=== PATIENT | female | born 2000 | race Caucasian/White ===

== ENCOUNTER 2020-01-20 16:18 | Emergency (ER) | payer SELFPAY ==
--- NOTE | 2020-01-20 16:21 | XRR_ITS ---
PROCEDURE INFORMATION: Exam: XR Left Knee Exam date and time: 01/20/2020 4:51 PM Age: 20 years old Clinical indication: Pain; Knee; Left TECHNIQUE: Imaging protocol: XR Left knee. Views: 3 views. COMPARISON: No relevant prior studies available. FINDINGS: Bones/joints: Normal. Soft tissues: Normal. XR/XR knee LT 3V* [id number] IMPRESSION: No acute findings.
--- NOTE | 2020-01-20 16:21 | XRR_ITS ---
PROCEDURE INFORMATION: Exam: XR Right Knee Exam date and time: 01/20/2020 4:53 PM Age: 20 years old Clinical indication: Pain; Knee; Right TECHNIQUE: Imaging protocol: XR Right knee. Views: 3 views. COMPARISON: No relevant prior studies available. FINDINGS: Bones/joints: Normal. Soft tissues: Normal. XR/XR knee RT 3V* [id number] IMPRESSION: No acute findings.
[2020-01-20 16:25] VITALS: BP 114/71; PULSE 82; RESP 14; TEMP 36.7; O2SAT 98; BMI 19.8
--- NOTE | 2020-01-20 16:43 | ED_ITS ---
HPI - Extremity Problem General: Chief complaint: Extremity Problem,Nontraumatic Stated complaint: knee pain Time Seen by Provider: 01/20/20 16:34 Source: patient Mode of arrival: ambulatory Limitations: no limitations History of Present Illness: HPI Narrative: Marija is a very nice 20-year-old female who comes in complaining of bilateral knee pain. She states the pains been going on for about 3 months and becoming progressively worse. Her left knee hurts more than her right. She states when she bends her walks on her knees it hurts more than when she is at rest. She has no pain with just standing. She denies any specific injury. Patient states that walking in bending does make the pain worse and rest makes it better. She denies any fevers or chills. She denies any swelling to the knees. Patient has not received any work-up for this up to this point. She is not tried any for this at home either. Associated symptoms: Deny chest pain, fever(s) or rash Review of Systems Const: Denies: fever(s), chills, body aches, fatigue, malaise or diaphoresis Eyes: Denies: change in vision, blurry vision, blind spots, photophobia, eye discharge or eye redness ENMT: Denies: throat pain, odynophagia, hoarseness, swelling of lips/tongue, oral sores, ear or mastoid pain, ear discharge, change in hearing or nasal discharge Card: Denies: chest pain, palpitations, irregular heart rhythm, edema, lightheadedness, syncope, pre-syncope, dyspnea on exertion or orthopnea Resp: Denies: dyspnea, productive cough, non-productive cough, wheezing, hemoptysis or chest congestion GI: Denies: abdominal pain, nausea, vomiting, hematemesis, coffee ground emesis, heartburn, diarrhea, constipation, GI cramping, hematochezia or melena : Denies: flank pain, dysuria, urinary frequency, urinary urgency or hematuria Musc: Reports: joint pain; Denies: neck pain, back pain, extremity pain, extremity swelling, joint swelling, joint redness, joint warmth or joint stiffness Skin/Breast: Denies: rash, pruritus, erythema, skin tenderness or jaundice Neuro: Denies: headache(s), numbness in extremities, weakness in extremities, sensory changes, lack of coordination, difficulty walking, dizziness, vertigo, confusion, Slurred speech present or seizure-like activity Chirag/Lymph: Denies: easy bruising, easy bleeding, petechiae, purpura or enlarged lymph nodes All/Imm: Denies: urticaria, throat swelling, tongue swelling, facial swelling or acute wheezing PFSH ED PFSH: Social History (Updated 01/20/20 @ 15:44 by Ayleen Warren LPN) Smoking and tobacco status: never smoked Alcohol intake: current Physical Exam Const: COMMON NORMALS: no acute distress, patient oriented x3, no limitations, healthy appearing and well nourished GENERAL APPEARANCE: cooperative, well kempt and well developed HENMT: COMMON NORMALS: normocephalic, atraumatic, external ears normal, EAC's normal and Normal external nose present HEAD & SCALP: normal to inspection, normocephalic and atraumatic FACE & SINUS: normal facial exam and face symmetric NOSE: Normal external nose present and Normal nares present EXTERNAL EAR: Yes external ears normal EXTERNAL AUDITORY CANAL: EAC's normal MOUTH: Normal oral and palatal mucosa present, lip normal and tongue normal Eye: COMMON NORMALS: Equal, round and reactive pupils present and conjunctivae normal GENERAL EYE: appearance normal, both eyes and all related structures ALIGNMENT: Yes alignment normal PERIORBITAL: periorbital findings normal EYELID: eyelids normal CONJUNCTIVA: Yes conjunctivae normal SCLERA: sclerae normal PUPIL: Yes Equal, round and reactive pupils present Neck/C-Spine: COMMON NORMALS: full ROM, no lymphadenopathy, supple, no meningeal signs and no JVD GENERAL: Yes normal visual inspection and Yes trachea midline Chest: COMMONS NORMALS: normal inspection of the chest and normal palpation of entire chest wall Resp: COMMON NORMALS: normal respiratory effort, No retractions and No use of accessory muscles EFFORT & INSPECTION: Yes able to speak in complete sentences and Yes symmetric chest movement AUSCULTATION: no crackles, no rales, no rhonchi and no wheezes Cardio: COMMON NORMALS: no JVD, regular rate, regular rhythm, S1 normal heart sound present and S2 normal heart sound present RATE: regular rate RHYTHM: regular rhythm HEART SOUNDS: S1 normal heart sound present, S2 normal heart sound present, no click, no gallops, no murmurs, no rubs and abnormal split S2 GI: COMMON NORMALS: Soft to palpation and No hepatosplenomegaly present PALPATION: Yes Soft to palpation, No Tenderness to palpation present (GI), No Guarding due to palpation present (GI), No Rigid due to palpation, Yes No hepatosplenomegaly present, No Hernia present, No Palpable mass present and No Pulsatile mass present : COMMON NORMALS: Yes no CVA tenderness BLADDER/KIDNEY EXAM: Yes no CVA tenderness EXTERNAL FEMALE EXAM: No Hernia present Back/Pelvis: COMMON NORMALS: no CVA tenderness, thoracic and lumbar spine normal to inspection, no thoracic nor lumbar tenderness and thoraco-lumbar ROM normal Extremity: COMMON NORMALS: normal to inspection, capillary refill normal, no joint enlargement, no clubbing, cyanosis or edema and no calf tenderness NARRATIVE EXTREMITY EXAM: Bilateral knees without swelling, ecchymosis or tenderness to palpation. No tenderness to palpation. No warmth to the touch. Neuro: COMMON NORMALS: patient oriented x3, CN's II-XII intact bilaterally, moves all extremities, no focal motor deficits and no sensory deficits noted MENINGEAL SIGNS: Yes no meningeal signs SPEECH: speech normal Psych: COMMON NORMALS: mental status grossly normal, Normal thought process present, cooperative, normal affect, speech normal and activity/motor behavior normal APPEARANCE: Yes well kempt SPEECH: Yes normal speech THOUGHT PROCESS: Normal thought process present Skin: COMMON NORMALS: no rashes or lesions noted, turgor normal, no jaundice, no petechiae and no mottling GENERAL SKIN EXAM: no rashes or lesions noted and turgor normal Course Vital Signs: Vital signs: Vital Signs Temperature 98.0 F 01/20/20 16:25 Pulse Rate 70 01/20/20 17:02 Respiratory Rate 14 01/20/20 17:02 Blood Pressure 110/76 01/20/20 17:02 Pulse Oximetry 99 01/20/20 17:02 MDM - Extremity (Nontraumatic) MDM Narrative: Medical decision making narrative: Marija is a nice 20-year-old female who comes in complaining of chronic knee pain. Her exam and x-rays are unremarkable. I see no sign of infected joint, rheumatoid arthritis, acute joint instability or otherwise. The patient would like to go home so we will wrap her to an Ger wrap and write her off work today. She agrees to follow-up with Dr. Samira as this is become a persistent problem. Imaging Data^: Bilateral Knee X-Rays: Attestation: I personally reviewed and interpreted this imaging study as follows: My impression: No acute fractures or dislocations. Discharge Plan Discharge Patient Disposition: Home Clinical Impression: Acute knee pain Condition: Stable Prescriptions: No Action No Known Home Medications RF: 0 Discharge Orders: Discharge Order (Routine); Ordered 01/20/20 Ordered By: Marsha De La Rosa Referrals: Meron Ruiz MD [Physician] - 1-3 days Discharge Diet: Advance as tolerated Discharge Activity: Increase activity as tolerated Patient Instructions: Knee Pain (ED) Activity Restrictions/Additional Instructions: Please return to the ER immediately for any of the signs or symptoms listed on your discharge instruction sheets, worsening/changing of your symptoms, you are not getting better as quickly as expected, or for ANY other cause or concerns. Stand Alone Forms: Work/School Release Discharge Date/Time: 01/20/20 17:03 Coding Level of Care Code ED Warehouse Logistics Coordinator for Chg Fwd Exam Comprehensive
--- NOTE | 2020-01-20 17:00 | PC.NURSE ---
Ger wrap applied to left knee
[2020-01-20 17:02] VITALS: BP 110/76; PULSE 70; RESP 14; O2SAT 99
== END 2020-01-20 17:03 | disposition home or self-care (01) ==
PROVIDERS: Emergency Provider Emergency Medicine
DX: M25.561 Pain in right knee (principal); M25.562 Pain in left knee
CPT/HCPCS: 12345; 73562; 99281; 99283

== ENCOUNTER → 2020-03-20 17:31 | Outpatient (BNVA) | payer SELFPAY | PROVIDERS: Visit Provider Nurse Practitioner | DX: J02.9 Acute pharyngitis, unspecified (principal); J02.0 Streptococcal pharyngitis | CPT/HCPCS: 87071; 87880 ==

== ENCOUNTER 2021-11-24 00:09 | Emergency (ER) | payer SELFPAY ==
[2021-11-24 00:33] VITALS: BP 115/80; PULSE 88; RESP 18; TEMP 36.9; O2SAT 98; BMI 23.9
--- NOTE | 2021-11-24 02:09 | ED_ITS ---
HPI - Ear Problem General: Chief complaint: Ear Stated complaint: Sinus infection/left ear pain Time Seen by Provider: 11/24/21 00:33 History of Present Illness: Patient is a 21-year-old female comes to the ED with left ear pain. Patient had a positive test yesterday and is currently in the process of setting up an appointment with her OB for first trimester appointment. Left ear pain started today. She rates the pain currently a 5 out of 10. She was having sinus congestion and drainage yesterday, but since she found out she was she did not take any [id number] decongestants. Today she woke up and started having the left ear pain. Denies any fevers, ear discharge or drainage, cough, shortness of breath, chest pain, abdominal pain, bladder or bowel symptoms. Patient does endorse some mild morning nausea. Denies any vaginal discharge or vaginal bleeding. Associated symptoms: Reports ear or mastoid pain (left ear pain); Denies fever(s), headache(s) or neck pain Review of Systems Const: Denies: fever(s), chills or fatigue Eyes: Denies: change in vision or eye discomfort ENMT: Reports: ear or mastoid pain (left ear pain); Denies: throat pain, odynophagia, ear discharge, change in hearing, nasal discharge or nasal congestion Card: Denies: chest pain, palpitations, edema, swelling of feet/ankles, dyspnea on exertion or orthopnea Resp: Denies: dyspnea, productive cough or non-productive cough GI: Denies: abdominal pain, nausea, vomiting, diarrhea, constipation or hematochezia : Reports: vaginal bleeding; Denies: flank pain, dysuria or hematuria Musc: Denies: neck pain, back pain or extremity swelling Skin/Breast: Denies: rash or new lesions Neuro: Denies: headache(s), numbness in extremities or weakness in extremities PFSH ED PFSH: Medical History No pertinent family history Surgical History No pertinent past surgical history Social History Smoking and tobacco status: current every day smoker Alcohol intake: never Physical Exam Const: COMMON NORMALS: no acute distress, patient oriented x3 and alert GENERAL APPEARANCE: cooperative and comfortable HENMT: COMMON NORMALS: normocephalic, external ears normal and EAC's normal HEAD & SCALP: normocephalic FACE & SINUS: sinuses nontender EXTERNAL EAR: Yes external ears normal EXTERNAL AUDITORY CANAL: EAC's normal TYMPANIC MEMBRANE: TM abnormal TM laterality: left Details: bulging, erythematous and fluid behind TM MOUTH: Normal oral and palatal mucosa present THROAT: posterior oropharynx normal and uvula midline Eye: COMMON NORMALS: Equal, round and reactive pupils present and conjunctivae normal CONJUNCTIVA: Yes conjunctivae normal PUPIL: Yes Equal, round and reactive pupils present Neck/C-Spine: COMMON NORMALS: supple GENERAL: Yes normal visual inspection Resp: COMMON NORMALS: normal respiratory effort, No retractions, No use of accessory muscles and clear to auscultation bilaterally AUSCULTATION: clear to auscultation bilaterally Cardio: COMMON NORMALS: regular rate, regular rhythm, S1 normal heart sound present, S2 normal heart sound present, No gallops present (Cardio), No clicks present (Cardio), No murmurs present (Cardio) and Peripheral pulses 2+ throughout RATE: regular rate RHYTHM: regular rhythm HEART SOUNDS: S1 normal heart sound present and S2 normal heart sound present PERIPHERAL PULSES: Peripheral pulses 2+ throughout GI: COMMON NORMALS: Normal to inspection, nondistended, normoactive bowel sounds present, Soft to palpation, non-tender and no masses PALPATION: Yes Soft to palpation : COMMON NORMALS: Yes no CVA tenderness BLADDER/KIDNEY EXAM: Yes no CVA tenderness Back/Pelvis: COMMON NORMALS: no CVA tenderness Extremity: COMMON NORMALS: normal to inspection Neuro: COMMON NORMALS: patient oriented x3 and moves all extremities SENSORIUM/ORIENTATION: Yes alert Skin: GENERAL SKIN EXAM: dry skin Course Vital Signs: Vital signs: Vital Signs Temperature 98.5 F 11/24/21 00:33 Pulse Rate 88 11/24/21 00:33 Respiratory Rate 18 11/24/21 00:33 Blood Pressure 115/80 11/24/21 00:33 Pulse Oximetry 98 11/24/21 00:33 MDM - Ear Medical Decision Making Patient is a 21-year-old female comes to the ED with left ear pain. Vitals are stable and patient appears nontoxic in no acute distress or pain. Exam of patient shows acute otitis media in left ear. Patient discharged home with prescription for amoxicillin and told to follow-up with PCP in the next week for reevaluation. Return to ED precautions given. Patient understood and agreed with plan. Discharge Plan Discharge Patient Disposition: Home Clinical Impression: Otitis media Qualifiers: Otitis media type: serous Chronicity: acute Laterality: left Recurrence: non- recurrent Qualified Code(s): H65.02 - Acute serous otitis media, left ear Condition: Stable Prescriptions: New amoxicillin 500 mg capsule 500 mg PO BID 10 Days Qty: 20 0RF Discharge Orders: Discharge ED (Routine); Ordered 11/24/21 Ordered By: Terrence Tillman Discharge Diet: Regular Discharge Activity: Resume usual activity Patient Instructions: Otitis Media - Adult Activity Restrictions/Additional Instructions: Follow-up with medical provider as directed in the next 7 to 10 days reevaluation.Take medications as prescribed. Return to the ER or your medical provider if condition worsens. Please read and understand discharge instructions. Thank you for choosing [facility] for your healthcare needs today. Please realize this is an emergency room and that we are providing you with a medical screening exam and this may not be complete and all inclusive of all the testing and or work up that you may need to determine your ailment or severity of your illness. It is very important that you follow up as instructed or that you return to the Emergency Department should you have concerns or if your condition changes or worsens in any way. Coding Level of Care Code ED Network Support Engineer for Josh Phillip Exam Comprehensive
[2021-11-24] MEDS: amoxicillin 500 mg Capsule PO (02:20)
== END 2021-11-24 02:22 | disposition home or self-care (01) ==
PROVIDERS: Emergency Provider Physician Assistant
DX: H65.02 Acute serous otitis media, left ear (principal)
CPT/HCPCS: 99283

== ENCOUNTER → 2022-02-18 10:33 | Outpatient (BNVA) | payer MEDICAID, SELFPAY | PROVIDERS: Visit Provider Emergency Medicine | DX: Z20.822 Contact with and (suspected) exposure to COVID-19 (principal) | CPT/HCPCS: 87426 ==

== ENCOUNTER 2022-03-19 22:17 | Emergency (ER) | payer MEDICAID, SELFPAY ==
--- NOTE | 2022-03-19 22:18 | XRR_ITS ---
PROCEDURE INFORMATION: Exam: XR Right Ankle Exam date and time: 03/19/2022 10:48 PM Age: 22 years old Clinical indication: Injury or trauma; Fall; Blunt trauma; Ankle; Right TECHNIQUE: Imaging protocol: Radiologic exam of the Right ankle. Views: 3 or more views. COMPARISON: No relevant prior studies available. FINDINGS: Bones/joints: Osseous structures are intact. Negative for fracture. Joint spaces are preserved. Soft tissues: Normal. XR/XR ankle RT min 3V* [id number] IMPRESSION: No acute findings.
[2022-03-19 22:23] VITALS: BP 104/72; PULSE 101; RESP 16; TEMP 36.7; O2SAT 95; BMI 23.9
--- NOTE | 2022-03-19 22:31 | ED_ITS ---
HPI - Extremity Injury (Lower) General: Chief Complaint: Extremity Injury, Lower Stated Complaint: Rt Ankle Injury Time Seen by Provider: 03/19/22 22:31 History of Present Illness: 22-year-old female comes in today with complaints of injury to the right ankle. Patient reports she went to stand up this evening and lost her footing when she went to put weight on her right ankle causing it to turn. Patient has had increased pain and discomfort to the ankle since then. No obvious deformity is noted. Minimal swelling is noted. Review of Systems Const: Denies: fever(s) Card: Denies: chest pain Resp: Denies: dyspnea Musc: Reports: joint pain (Right lateral ankle) PFS ED PFSH: Medical History No pertinent family history Surgical History No pertinent past surgical history Social History Smoking and tobacco status: current every day smoker Alcohol intake: never Physical Exam Const: COMMON NORMALS: alert HENMT: COMMON NORMALS: normocephalic HEAD & SCALP: normocephalic Neck/C-Spine: COMMON NORMALS: full ROM Resp: COMMON NORMALS: normal respiratory effort Cardio: COMMON NORMALS: regular rate RATE: regular rate Extremity: RIGHT LOWER EXTREMITY: Yes foot & digits (Lateral joint line tenderness, no deformity, minimal swelling) Right ankle: Yes inspection, Yes pa lpation and Yes ROM Neuro: SENSORIUM/ORIENTATION: Yes alert Skin: COMMON NORMALS: turgor normal GENERAL SKIN EXAM: turgor normal Course Vital Signs: Vital signs: Vital Signs Temperature 98.1 F 03/19/22 22:23 Pulse Rate 101 H 03/19/22 22:23 Respiratory Rate 16 03/19/22 22:23 Blood Pressure 104/72 03/19/22 22:23 Pulse Oximetry 95 03/19/22 22:23 Oxygen Delivery Me thod 03/19/22 22:23 MDM - Extremity Injury (Lower) Medical Decision Making Patient comes in for evaluation of right ankle pain after injury this evening. On exam patient has some lateral tenderness and mild swelling to the ankle. Differential diagnosis includes sprain, fracture, contusion. X-ray noted no fracture or dislocation. Reviewed exam with patient with recommendations and treatment. Patient reported understanding and agreed to plan. Lab Data Radiology Impressions Ankle X-Ray 03/19/22 22:18 IMPRESSION: No acute findings. Discharge Plan Discharge Patient Disposition: Home Clinical Impression: Ankle sprain and strain Condition: Stable Prescriptions: No Action No Known Home Medications Discharge Orders: Discharge ED (Routine); Ordered 03/19/22 Ordered By: Anselmo Real Discharge Diet: Usual diet Discharge Activity: Increase activity as tolerated Patient Instructions: Ankle Sprain (ED) Activity Restrictions/Additional Instructions: Activity as tolerated. Use crutches as needed to help with ambulation. Use acetaminophen for pain. Ice packs for further pain relief. Follow-up with primary care for further instruction. Return to ER for new concerns. Coding Level of Care Code ED Parliamentary Librarian for Josh Phillip Exam Detailed
== END 2022-03-19 23:45 | disposition home or self-care (01) ==
PROVIDERS: Emergency Provider Nurse Practitioner Family
DX: S93.401A Sprain of unspecified ligament of right ankle, initial encounter (principal); S96.911A Strain of unspecified muscle and tendon at ankle and foot level, right foot, initial encounter; F17.210 Nicotine dependence, cigarettes, uncomplicated; W18.40XA Slipping, tripping and stumbling without falling, unspecified, initial encounter
CPT/HCPCS: 73610; 99283; E0114

== ENCOUNTER 2022-06-22 17:48 | Outpatient (CLI) | payer MEDICAID, SELFPAY ==
[2022-06-22 17:48] VITALS: BMI 25.7
[2022-06-22 18:13] VITALS: BP 105/63; PULSE 86; RESP 16; TEMP 36; TEMP 36.6
[2022-06-22 18:36] LABS: Nitrazine Paper, PH Negative
== END 2022-06-22 18:50 | disposition home or self-care (01) ==
LOC: OPOB 17:57 → OBGYN 18:00
PROVIDERS: Visit Provider Family Medicine
DX: O26.899 Other specified pregnancy related conditions, unspecified trimester (principal); Z3A.00 Weeks of gestation of pregnancy not specified; N89.8 Other specified noninflammatory disorders of vagina
CPT/HCPCS: 59025; 83986; 99211

== ENCOUNTER 2022-07-23 04:50 | Inpatient (IN) | payer MEDICAID, SELFPAY ==
[2022-06-22 18:13] VITALS: RESP 16; TEMP 36.6
[2022-07-23] VITALS (86 sets, daily range): BP systolic 73–128; BP diastolic 50–87; PULSE 62–104; RESP 16–17; TEMP 36.7–36.8; O2SAT 93–100; BMI 26.0
[2022-07-23] MEDS: miSOPROStol 100 mcg tablet 25 MCG SUBLINGUAL (05:15)
[2022-07-23 05:24] LABS: Basophils # 0.1 10^3/uL (0.0-0.1); Basophils % 0.5 %; Eosinophils # 0.5 10^3/uL (0.0-0.8); Eosinophils % 3.4 %; Hematocrit 34.7 % (37.0-47.0); Hemoglobin 11.5 g/dL (11.5-15.3); Lymphocytes # 4.4 10^3/uL (0.8-4.8); Lymphocytes % 29.1 %; Mean Corpuscular HGB Conc 33.1 g/dL (30.0-36.0); Mean Corpuscular Hemoglobin 29.6 pg (28.0-34.0); Mean Corpuscular Volume 89.4 fl (81-99); Mean Platelet Volume 11.2 fL (7.4-10.4); Monocytes # 1.2 10^3/uL (0.2-0.9); Neutrophils # 8.66 10^3/uL (1.8-7.7); Neutrophils % 57.8 %; Nucleated Red Blood Cells % 0 %; Platelet Count 298 10^3/cmm (130-400); Red Blood Count 3.88 10^6/uL (4.1-5.3)
--- NOTE | 2022-07-23 06:31 | P.ANESASSM_ITS ---
Pre-Anesthetic Assessment Height/Weight: Height 1.6 m Temp Pulse Resp BP 97.9 F 75 16 110/72 06/22/22 18:13 07/23/22 05:41 06/22/22 18:13 07/23/22 05:41 Familial anesthetic complications: None Was Beta Yasmin taken within 24 hours: N/A Was Clonidine taken within 24 hours: N/A Social Tobacco and No alcohol <0.5 pack(s) per day Exam alert, oriented x 3, clear to auscultation bilaterally and regular rate & rhythm Airway Submandibular: within normal limits Cervical ROM: within normal limits Mallampati: Class III Dentition: chipped Comments: Comments: Several chipped teeth History/ROS No significant history except as noted and No significant complaints Pulmonary None reported CV/HEM None reported None reported Hepatic None reported GI Gastroesophageal Reflux Disease Metabolic None reported Musc/skel Lower Back Pain and Scoliosis (No corrective measures) Neuropsych Anxiety Anesthetic Plan ASA status: 2 Anesthesia: Anesthesia Evaluation and Regional (specify below) Medications/Allergies Home Medications Medication Instructions Recorded Confirmed Last Taken Type [id number] 1 mg 1 tab PO DAILY 06/22/22 06/22/22 06/22/22 19:09 History tablet Allergies Allergy/AdvReac Type Severity Reaction Status Date / Time No Known Allergies Allergy Verified 06/22/22 19:08 [facility] Anesthesia Medical History No pertinent family history Surgical History No pertinent past surgical history Social History Smoking and tobacco status: current every day smoker Alcohol intake: never Female Reproductive History Date of last menstrual period: 10/21/21 Data Anesthesia 07/23/22 05:00 Short CBC 07/23/22 Range/Units 05:00 WBC 15.0 H (4.0-10.0) 10^3/uL Hgb 11.5 (11.5-15.3) g/dL Hct 34.7 L (37.0-47.0) % MCV 89.4 (81-99) fl Plt Count 298 (130-400) 10^3/cmm Neut % (Auto) 57.8 % Neut # (Auto) 8.66 H (1.8-7.7) 10^3/uL Cardiac Studies: No Data to Display
--- NOTE | 2022-07-23 07:05 | ANES.PROC ---
Anesthesia Procedures Procedure/Date: 07/23/22 Epidural: Time Out Performed: Yes Consents Signed: Procedure Consent and NPO Consent Consent: requested by attending/covering physician, from patient, risks and benefits reviewed and patient agrees to proceed Lumbar Level: L3-L4 Epidural position: sitting Epidural procedure: sterile prep of area (betadine), 1% lidocaine to numb the area (3 mLs), neg for paresthesia, test dose given, 1.5% xylocaine 1:200k epi (3 mL/2 mL), 0.2% Ropivacaine bolus ml (5 mLs), placed PCEA, no systemic response, sterile dressing applied, L.U.D. no apparent complications and 0.2% Ropiavacaine @ mls/hr (11 mLs/hr) Additional Comments: HAFSA 4cm, catheter placed at 9cm
[2022-07-23] MEDS: dextrose 5%-lactated ringers 1,000 ML 125 ML IV ×2 (08:03→16:04)
--- NOTE | 2022-07-23 08:12 | P.HPUD_ITS ---
Labor & Delivery H&P Update Date of Procedure: July 23, 2022 Date H&P Performed: 07/22/22 Admission Diagnosis: 22-year-old 3 para 2-0-0-2 presenting with rupture membranes Planned procedure: Spontaneous vaginal delivery Other information: The patient is a 22-year-old 3 para 2-0-0-2 at 38 weeks and 6 days estimated gestational age. She presented to the hospital complaining of rupture membranes and she was found to have grossly ruptured membranes. As result she was started on Cytotec to augment her labor. Her has been relatively unremarkable. Her blood type is O+. She was THC positive. Her glucose screen was within normal limits she is rubella immune. The remainder of her infectious disease profile was within normal limit s. Related Problem List Diagnoses (1) 38 weeks gestation of : A&P Assessment and plan (1) 38 weeks gestation of : Anticipate routine labor and vaginal delivery. Status: Acute
[2022-07-23 08:35] LABS: Amphetamines Screen Urine Negative (Negative); Barbiturates Screen Urine Negative (Negative); Benzodiazepines Screen Urine Negative (Negative); Cocaine Screen Urine Negative (Negative); Opiate Screen Urine Negative (Negative); PCP Screen Urine Negative (Negative); THC Screen Urine Negative (Negative)
[2022-07-23] MEDS: oxytocin 30 UNIT/500 ML BAG IV (13:12)
--- NOTE | 2022-07-23 18:20 | PM.DELIVERY ---
Delivery Note: Date of delivery: July 23, 2022 Pre-delivery diagnoses: 22-year-old 3 at 38 weeks estimated gestational age with spontaneous rupture membranes and augmented labor Post-delivery diagnoses: That is post spontaneous vaginal delivery Procedure: Spontaneous vaginal delivery Delivering Physician: Naeem Barragan Estimated blood loss (mL): 75 Pre-Delivery Course: The patient presented to the hospital with spontaneous rupture membranes. She was having irregular contractions. She was placed on Cytotec 25 mcg sublingual. Pitocin was later added but her contractions were irregular. An amniotomy was performed to rupture of forebag. She progressed to complete without difficulty. Delivery: DELIVERY: The patient progressed to complete without difficulty. She delivered a male with a weight of 6 pounds 13 ounces with Apgars of 9, 9. The baby was delivered from the CAREY position and placed on the mother's abdomen. The cord was then clamped and cut 1 minute after delivery. There was no nuchal cord. There was no meconium. The placenta and 3 vessel cord were delivered intact shortly thereafter. The perineum and vaginal vault were carefully examined. 2 superficial vaginal wall lacerations were noted. No repair was required.. Both the mother and the baby were in stable condition. Post-Delivery Status: Good A&P Assessment and plan (1) 38 weeks gestation of : (2) Spontaneous vaginal delivery: I anticipate routine care. Coding Level of Care Code Acute Code for Chg Fwd Diagnoses 38 weeks gestation of Z3A.38 Spontaneous vaginal delivery O80
[2022-07-23] MEDS: ibuprofen 800 mg tablet PO (20:56)
[2022-07-24] VITALS (7 sets, daily range): BP systolic 96–116; BP diastolic 53–78; PULSE 78–88; RESP 13–18; TEMP 36.5–36.8; O2SAT 94–100
[2022-07-24] MEDS: HYDROcodone-acetaminophen 5-325 mg Tablet PO (03:45)
[2022-07-24 07:15] LABS: Hematocrit 32.3 % (37.0-47.0); Hemoglobin 10.5 g/dL (11.5-15.3); Mean Corpuscular HGB Conc 32.5 g/dL (30.0-36.0); Mean Corpuscular Hemoglobin 29.4 pg (28.0-34.0); Mean Corpuscular Volume 90.5 fl (81-99); Mean Platelet Volume 11.1 fL (7.4-10.4); Platelet Count 232 10^3/cmm (130-400); Red Blood Count 3.57 10^6/uL (4.1-5.3); Red Cell Distribution Width 14.2 % (12.1-15.1); White Blood Count 15.8 10^3/uL (4.0-10.0)
--- NOTE | 2022-07-24 07:34 | PM.OBGYDC ---
Discharge Providers FINANCIAL SERVICES SALES REPRESENTATIVE Date of Admission: 07/23/22 04:50 Date of Discharge: 07/24/22 Attending Provider at Admission: Naeem Barragan MD Attending Provider at Discharge: Naeem Barragan MD Diagnoses at Discharge Discharge Diagnosis (1) 38 weeks gestation of : Status: Acute Reason for Visit Reason for Visit: Possible ROM Hospital Course Hospital Course The patient presented to the hospital with spontaneous rupture membranes. Her labor was augmented with Cytotec and then later with Pitocin. She progressed to complete and had an unremarkable delivery of a healthy appearing infant. Her course was unremarkable. Her bleeding was within normal limits. Her pain was well controlled. There were no concerns. Information Peripartum Data: Infant Delivery Method: Vaginal Physical Exam Narrative: The patient is alert. She appears comfortable. Her heart has a regular rate and rhythm with no murmurs appreciated. Lungs are clear to auscultation bilaterally. Her fundus is firm and below the umbilicus. Urinary Catheter Management: Conde: Cath Placed During This Visit: yes Reason for Continuing Indwelling Catheter: Accurate Measurement of Urinary Output in Critically Ill Patients Urinary Catheter Date of Insertion: 07/23/22 Urinary Catheter Time of Insertion: 08:12 Discharge Data Studies Completed and Pending Laboratory Results WBC 15.8 10^3/uL (4.0-10.0) H 07/24/22 06:34 RBC 3.57 10^6/uL (4.1-5.3) L 07/24/22 06:34 Hgb 10.5 g/dL (11.5-15.3) L 07/24/22 06:34 Hct 32.3 % (37.0-47.0) L 07/24/22 06:34 MCV 90.5 fl (81-99) 07/24/22 06:34 MCH 29.4 pg (28.0-34.0) 07/24/22 06:34 MCHC 32.5 g/dL (30.0-36.0) 07/24/22 06:34 RDW 14.2 % (12.1-15.1) 07/24/22 06:34 Plt Count 232 10^3/cmm (130-400) 07/24/22 06:34 MPV 11.1 fL (7.4-10.4) H 07/24/22 06:34 Neut % (Auto) 57.8 % 07/23/22 05:00 Lymph % (Auto) 29.1 % 07/23/22 05:00 [place] % (Auto) 8.0 % 07/23/22 05:00 Eos % (Auto) 3.4 % 07/23/22 05:00 Baso % (Auto) 0.5 % 07/23/22 05:00 Neut # (Auto) 8.66 10^3/uL (1.8-7.7) H 07/23/22 05:00 Lymph # (Auto) 4.4 10^3/uL (0.8-4.8) 07/23/22 05:00 [place] # (Auto) 1.2 10^3/uL (0.2-0.9) H 07/23/22 05:00 Eos # (Auto) 0.5 10^3/uL (0.0-0.8) 07/23/22 05:00 Baso # (Auto) 0.1 10^3/uL (0.0-0.1) 07/23/22 05:00 Nucleated RBC % (auto) 0 % 07/23/22 05:00 Nucleated RBCs # 0.0 /100WBC 07/23/22 05:00 Urine Opiates Screen Negative ng/mL (Negative) 07/23/22 08:13 Ur Barbiturates Screen Negative ng/mL (Negative) 07/23/22 08:13 Ur Phencyclidine Scrn Negative ng/mL (Negative) 07/23/22 08:13 Ur Amphetamines Screen Negative ng/mL (Negative) 07/23/22 08:13 U Benzodiazepines Scrn Negative ng/mL (Negative) 07/23/22 08:13 Urine Cocaine Screen Negative ng/mL (Negative) 07/23/22 08:13 U Marijuana (THC) Screen Negative ng/mL (Negative) 07/23/22 08:13 Vitals Last Vital Signs Temp 98.3 F 07/23/22 19:03 Pulse 85 07/23/22 22:39 Resp 17 07/23/22 19:03 BP 103/63 07/23/22 22:39 Pulse Ox 97 07/23/22 07:50 O2 Del Method 07/23/22 19:03 Discharge Plan Discharge Patient Disposition: Home Condition: Stable Prescriptions: New ibuprofen 800 mg Tablet 800 mg PO TID Qty: 45 0RF Continued cplswqlx-yxs-Xs-FA 1 mg Tablet 1 tab PO DAILY Discharge Orders: Discharge Order (Routine); Ordered 07/24/22 Ordered By: Naeem Barragan Referrals: Naeem Barragan MD [Physician] - 6 Weeks Discharge Diet: Usual diet Discharge Activity: Limit activity as instructed Patient Instructions: Depression (DC), Bleeding (DC), Preeclampsia and Eclampsia After Delivery (GEN), OB Discharge Report, OB Food/Drug Interaction Guide, OB Care at Home, Opioid Safety, OB Vaginal Deliveries Discharge Attestations FINANCIAL SERVICES SALES REPRESENTATIVE Time Spent in Discharge Care*: less than 30 min Coding Level of Care Code Acute Code for Chg Fwd Diagnoses 38 weeks gestation of Z3A.38
[2022-07-24] MEDS: docusate sodium 100 mg Capsule PO (08:14)
[2022-07-24] MEDS: ibuprofen 800 mg tablet PO ×2 (08:14→14:24)
[2022-07-24] MEDS: prenatal vitamin Capsule 1 CAP PO (08:14)
--- NOTE | 2022-07-24 08:40 | ANE.PACU2 ---
Inpatient post-anesthesia follow up: Airway intact: Yes Vital signs: Temperature 97.9 F Pulse Rate 84 Respiratory Rate 18 Blood Pressure 97/64 Pulse Oximetry 94 Oxygen Delivery Me thod Room Air Oxygen Flow Rate Fraction of Inspir ed Oxygen Hydration adequate: Yes Nausea and vomiting: No Pain level: 2 Mental status: Baseline
--- NOTE | 2022-07-24 16:48 | PC.NURSE ---
1545 Pt. rooming in. There was no where to chart it on the discharge assessment
== END 2022-07-24 15:45 | disposition home or self-care (01) | DRG 807 ==
PROVIDERS: Admitting Provider Family Medicine; Visit Provider Family Medicine
DX: O99.334 Smoking (tobacco) complicating childbirth (principal); Z37.0 Single live birth; F17.210 Nicotine dependence, cigarettes, uncomplicated; O99.324 Drug use complicating childbirth; F12.90 Cannabis use, unspecified, uncomplicated; Z3A.38 38 weeks gestation of pregnancy
CPT/HCPCS: 12345; 36415; 51702; 59025; 59409; 80306; 83986; 85025; 85027; 90471; 90686; 99211; J2590; J2795; J7121

== ENCOUNTER → 2023-01-16 15:07 | Outpatient (BNVA) | payer MEDICAID, SELFPAY | PROVIDERS: Visit Provider Family Medicine | DX: J02.9 Acute pharyngitis, unspecified (principal) | CPT/HCPCS: 87880 ==

== ENCOUNTER 2023-01-18 14:51 | Emergency (ER) | payer MEDICAID, SELFPAY ==
[2023-01-18 15:01] VITALS: BP 122/62; PULSE 106; RESP 16; TEMP 37; O2SAT 97; BMI 25.3
--- NOTE | 2023-01-18 15:28 | ED_ITS ---
HPI - General Adult General: Chief complaint: COVID symptoms Stated complaint: possible covid symptoms Time Seen by Provider: 01/18/23 15:07 Source: patient Mode of arrival: ambulatory Limitations: no limitations History of Present Illness: Patient is a 23-year-old female who presents to the emergency department complaining of flu like symptoms onset 2-3 days. Patient states she was seen at her primary care office for symptoms of an ear infection and was subsequently prescribed amoxicillin and steroids. She began these medications on Tuesday afternoon, and states that while her ear complaints have resolved, she has developed worsening cough, chest congestion, sinus drainage, sore throat, and headache. No fevers. She denies any history of respiratory issues, including asthma. She states that she tried her sisters albuterol nebulizer, which temporarily improved her symptoms. She denies any sick contacts. She denies fever, chest pain, shortness of breath, palpitations, weakness, fatigue, or any other symptoms. She states that she has coughed up dark green-colored sputum. Onset (ago): day(s) Severity: mild and moderate Exacerbating factors: none Associated symptoms: Deny chest pain, dyspnea, headache(s), nausea, rash, palpitations, syncope or vomiting Review of Systems General: Reports: Other (Reports flulike symptoms) Const: Denies: fever(s), chills, body aches or fatigue Eyes: Denies: change in vision or blurry vision ENMT: Reports: throat pain, nasal discharge, nasal congestion and sinus pain; Denies: ear or mastoid pain or ear discharge Card: Denies: chest pain, palpitations, irregular heart rhythm, lightheadedness, syncope or dyspnea on exertion Resp: Reports: productive cough (Dark green sputum) and chest congestion; Denies: dyspnea, wheezing, pain on inspiration or hemoptysis GI: Denies: abdominal pain, nausea, vomiting, heartburn or diarrhea : Denies: dysuria Musc: Denies: neck pain, back pain or joint pain Skin/Breast: Denies: rash Neuro: Denies: headache(s) or dizziness PFS ED PFSH: Medical History No pertinent family history Surgical History No pertinent past surgical history Social History Smoking and tobacco status: current every day smoker Alcohol intake: never Substance/Drug Use: never Physical Exam Const: COMMON NORMALS: no acute distress, average body habitus, patient oriented x3, no limitations, healthy appearing, alert and well nourished GENERAL APPEARANCE: cooperative ORIENTATION/CONSCIOUSNESS: Yes awake, Yes oriented to person, Yes oriented to place and Yes oriented to time HENMT: COMMON NORMALS: normocephalic, atraumatic, hearing grossly normal bilaterally, external ears normal, EAC's normal, Normal external nose present, Normal nasal mucous membranes and turbinates present, moist oral mucous membranes and gingiva normal HEAD & SCALP: normal to inspection, normocephalic and atraumatic FACE & SINUS: normal facial exam and sinuses nontender NOSE: Normal external nose present, Normal nares present and Normal nasal mucous membranes and turbinates present EXTERNAL EAR: Yes external ears normal EXTERNAL AUDITORY CANAL: EAC's normal TYMPANIC MEMBRANE: TM abnormal TM laterality: right (Right TM mildly erythematous without perforation or drainage) MOUTH: Normal oral and palatal mucosa present THROAT: tonsils normal, uvula midline and posterior oropharynx abnormal (Minimal erythema without edema or exudate) Eye: COMMON NORMALS: Equal, round and reactive pupils present, EOMs intact bilaterally and conjunctivae normal GENERAL EYE: appearance normal, both eyes and all related structures and normal light reflex CONJUNCTIVA: Yes conjunctivae normal PUPIL: Yes Equal, round and reactive pupils present DIRECT OPHTHALMOSCOPY: Yes normal light reflex Neck/C-Spine: COMMON NORMALS: full ROM, no lymphadenopathy, supple and no meningeal signs Chest: COMMONS NORMALS: normal inspection of the chest Resp: COMMON NORMALS: normal respiratory effort, No retractions, No use of accessory muscles and clear to auscultation bilaterally AUSCULTATION: clear to auscultation bilaterally Cardio: COMMON NORMALS: regular rate and regular rhythm RATE: regular rate RHYTHM: regular rhythm Extremity: COMMON NORMALS: normal to inspection, no clubbing, cyanosis or edema and no calf tenderness GENERAL: Yes normal exam except as noted Neuro: COMMON NORMALS: patient oriented x3 SENSORIUM/ORIENTATION: Yes alert, Yes oriented to person, Yes oriented to place and Yes oriented to time MENINGEAL SIGNS: Yes no meningeal signs Skin: COMMON NORMALS: no rashes or lesions noted GENERAL SKIN EXAM: no rashes or lesions noted Course Vital Signs: Vital signs: Vital Signs Temperature 98.6 F 01/18/23 15:01 Pulse Rate 106 H 01/18/23 15:01 Respiratory Rate 16 01/18/23 15:01 Blood Pressure 122/62 01/18/23 15:01 Pulse Oximetry 97 01/18/23 15:01 Oxygen Delivery Me thod Room Air 01/18/23 15:01 MDM - General Adult Medical Decision Making Patient appears in no acute distress. Her CXR is normal. She is already on prednisone and amoxicillin. Complaints most likely are consistent with a viral upper respiratory infection. Recommend conservative therapies at home. She can continue antibiotics that she has already started them. Recommend follow-up with PCP in 1 to 2 weeks if symptoms do not seem to be improving. Discharge Plan Discharge Patient Disposition: Home Clinical Impression: Upper respiratory infection Condition: Stable Prescriptions: No Action norethindrone (contraceptive) 0.35 mg tablet 0.35 mg PO escitalopram oxalate 5 mg tablet 5 mg PO DAILY amoxicillin 500 mg tablet 500 mg PO BID Qty: 14 0RF prednisone 20 mg tablet 40 mg PO DAILY 3 Days Qty: 6 0RF zplbwoip-moc-Hw-FA 1 mg Tablet 1 tab PO DAILY ibuprofen 800 mg Tablet 800 mg PO TID Qty: 45 0RF Discharge Orders: Discharge ED (Routine); Ordered 01/18/23 Ordered By: Carolin Varma Activity Restrictions/Additional Instructions: Continue taking your amoxicillin and prednisone as prescribed. You may also take [id number] cough/cold medications, please use these medications as directed on the label. If symptoms do not improve in the next 5-7 days, follow- up with your primary care provider. Stand Alone Forms: Work/School Release Coding Level of Care Code ED Industrial Painter for Josh Phillip
--- NOTE | 2023-01-18 15:44 | XRR_ITS ---
PROCEDURE INFORMATION: Exam: XR Chest Exam date and time: 01/18/2023 3:49 PM Age: 23 years old Clinical indication: Cough; Additional info: Cough and congestion TECHNIQUE: Imaging protocol: Radiologic exam of the chest. Views: 1 view. COMPARISON: No relevant prior studies available. FINDINGS: Lungs: Unremarkable. No consolidation. Pleural spaces: Unremarkable. No pleural effusion. No pneumothorax. Heart/Mediastinum: Unremarkable. No cardiomegaly. Bones/joints: Unremarkable. XR/XR chest 1V portable [id number] IMPRESSION: No acute findings.
== END 2023-01-18 16:36 | disposition home or self-care (01) ==
PROVIDERS: Emergency Provider Physician Assistant
DX: J06.9 Acute upper respiratory infection, unspecified (principal); F17.200 Nicotine dependence, unspecified, uncomplicated; Z79.899 Other long term (current) drug therapy
CPT/HCPCS: 71045; 99283

== ENCOUNTER 2023-09-20 23:52 | Emergency (ER) | payer MEDICAID, SELFPAY ==
[2023-09-20 23:57] VITALS: BP 106/74; PULSE 77; RESP 16; TEMP 36.7; O2SAT 96; BMI 23.9
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
--- NOTE | 2023-09-21 00:08 | XRR_ITS ---
PROCEDURE INFORMATION: Exam: XR Right Wrist Exam date and time: 09/21/2023 12:13 AM Age: 23 years old Clinical indication: Pain; Wrist; Right TECHNIQUE: Imaging protocol: Radiologic exam of the right wrist. Views: 3 or more views. COMPARISON: No relevant prior studies available. FINDINGS: Bones/joints: No evidence of acute fracture or dislocation. No erosive disease. No significant degenerative change. Soft tissues: Normal. XR/XR wrist RT min 3V* [id number] IMPRESSION: No acute bony injury.
== END 2023-09-21 01:00 | disposition home or self-care (01) ==
PROVIDERS: Emergency Provider Physician Assistant
DX: S63.501A Unspecified sprain of right wrist, initial encounter (principal); S66.911A Strain of unspecified muscle, fascia and tendon at wrist and hand level, right hand, initial encounter; Z72.0 Tobacco use; Y04.2XXA Assault by strike against or bumped into by another person, initial encounter; Y07.010 Husband, current, perpetrator of maltreatment and neglect
CPT/HCPCS: 73110; 99283

== ENCOUNTER 2023-12-29 14:17 | Emergency (ER) | payer MEDICAID, SELFPAY ==
[2023-12-29 14:27] VITALS: BP 114/79; PULSE 66; RESP 15; TEMP 36.7; O2SAT 99
[2023-12-29 15:21] LABS: Basophils # 0.1 10^3/uL (0.0-0.1); Basophils % 0.7 %; Eosinophils # 0.4 10^3/uL (0.0-0.8); Eosinophils % 3.3 %; Hematocrit 39.6 % (36-47); Lymphocytes # 3.8 10^3/uL (0.8-4.8); Lymphocytes % 30.3 %; Mean Corpuscular HGB Conc 33.3 g/dL (30-55); Mean Corpuscular Hemoglobin 29.8 pg (27-33); Mean Corpuscular Volume 89.4 fl (85-98); Mean Platelet Volume 9.3 fL (7.4-10.4); Monocytes # 0.7 10^3/uL (0.2-0.9); Monocytes % 5.4 %; Neutrophils % 59.9 %; Nucleated Red Blood Cells % 0 %; Platelet Count 382 10^3/cmm (157-399); Red Blood Count 4.43 10^6/uL (3.85-5.65); Red Cell Distribution Width 13.2 % (12.1-15.1); White Blood Count 12.68 10^3/uL (3.29-11.43)
--- NOTE | 2023-12-29 15:26 | ED_ITS ---
HPI - Dizziness 2 General: Chief Complaint: Dizziness Stated Complaint: --dizziness and nausea Time Seen by Provider: 12/29/23 15:25 History of Present Illness: HPI Narrative: 23-year-old female comes in today with c omplaints of dizziness x 1 week. Patient is with her last period being in October of this year. Patient is scheduled to see Dr. Barragan for her first OB appointment at the end of this month. Patient is 4 para 2. Patient was on escitalopram up until 2 weeks ago. Patient has a history of depression. Patient also reports medical problems scoliosis. Patient denies any dysuria, reports no recent tick bites, reports no fever or chills, patient denies shortness of breath or chest pain, patient reports mild nausea no vomiting or diarrhea. Patient appears nontoxic. Patient appears in no pain. Patient reports some poor oral intake today and not eating today at this time. Review of Systems 2 General: Reports: 10 or more systems reviewed and unremarkable except in HPI and below Neuro: Reports: dizziness PFSH ED 2 PFSH: Medical History No pertinent family history Surgical History No pertinent past surgical history Social History Smoking and tobacco/nicotine status: current every day tobacco/nicotine user Alcohol intake: never Substance/Drug Use: never Physical Exam 2 Const: COMMON NORMALS: alert HENMT: COMMON NORMALS: normocephalic HEAD & SCALP: normocephalic MOUTH: Normal oral and palatal mucosa present Neck/C-Spine: COMMON NORMALS: full ROM Chest: COMMONS NORMALS: normal inspection of the chest Resp: COMMON NORMALS: normal respiratory effort and clear to auscultation bilaterally AUSCULTATION: clear to auscultation bilaterally Cardio: COMMON NORMALS: regular rate and regular rhythm RATE: regular rate RHYTHM: regular rhythm GI: COMMON NORMALS: Soft to palpation and non-tender PALPATION: Yes Soft to palpation Back/Pelvis: COMMON NORMALS: thoracic and lumbar spine normal to inspection Extremity: COMMON NORMALS: normal to inspection Neuro: SENSORIUM/ORIENTATION: Yes alert Skin: COMMON NORMALS: turgor normal GENERAL SKIN EXAM: turgor normal Course 2 Vital Signs: Vital signs: Vital Signs Temperature 98.1 F 12/29/23 14:27 Pulse Rate 66 12/29/23 14:27 Respiratory Rate 15 12/29/23 14:27 Blood Pressure 114/79 12/29/23 14:27 Pulse Oximetry 99 12/29/23 14:27 Oxygen Delivery Me thod Room Air 12/29/23 14:27 MDM - Dizziness Medical Decision Making 23-year-old female comes in today for complaints of nausea and dizziness. Patient is in her 6th-8th week of . Patient's last menstrual cycle was in October. Patient appears nontoxic. Patient reports no vaginal bleeding or discharge. Patient reports no fever or chills. Patient reports no blood in emesis or stool. Lungs are clear to auscultation. Vital signs are normal. Skin is warm and dry. Differential diagnosis dehydration, electrolyte imbalance, urinary tract infection, first trimester . Patient's sodium was slightly decreased at 134. Hemoglobin was 13.2. Patient some mild leukocytosis at 12.6. Urinalysis was clean. Believe patient most likely has some mild dehydration secondary to her early nausea. Encourage patient to drink plenty of fluids and follow-up with primary care. Patient reports understanding of care plan and need for follow-up or return for worsening symptoms. Lab Data 12/29/23 15:14 12/29/23 15:14 Laboratory Results WBC 12.68 10^3/uL (3.29-11.43) H 12/29/23 15:14 RBC 4.43 10^6/uL (3.85-5.65) 12/29/23 15:14 Hgb 13.20 g/dL (11.27-16.99) 12/29/23 15:14 Hct 39.6 % (36-47) 12/29/23 15:14 MCV 89.4 fl (85-98) 12/29/23 15:14 MCH 29.8 pg (27-33) 12/29/23 15:14 MCHC 33.3 g/dL (30-55) 12/29/23 15:14 RDW 13.2 % (12.1-15.1) 12/29/23 15:14 Plt Count 382 10^3/cmm (157-399) 12/29/23 15:14 MPV 9.3 fL (7.4-10.4) 12/29/23 15:14 Neut % (Auto) 59.9 % 12/29/23 15:14 Lymph % (Auto) 30.3 % 12/29/23 15:14 [place] % (Auto) 5.4 % 12/29/23 15:14 Eos % (Auto) 3.3 % 12/29/23 15:14 Baso % (Auto) 0.7 % 12/29/23 15:14 Neut # (Auto) 7.60 10^3/uL (1.8-7.7) 12/29/23 15:14 Lymph # (Auto) 3.8 10^3/uL (0.8-4.8) 12/29/23 15:14 [place] # (Auto) 0.7 10^3/uL (0.2-0.9) 12/29/23 15:14 Eos # (Auto) 0.4 10^3/uL (0.0-0.8) 12/29/23 15:14 Baso # (Auto) 0.1 10^3/uL (0.0-0.1) 12/29/23 15:14 Nucleated RBC % (auto) 0 % 12/29/23 15:14 Nucleated RBCs # 0.0 /100WBC 12/29/23 15:14 Sodium 134 mmol/L (136-145) L 12/29/23 15:14 Potassium 4.0 mmol/L (3.5-5.1) 12/29/23 15:14 Chloride 102 mmol/L (98-107) 12/29/23 15:14 Carbon Dioxide 20 mmol/L (22-29) L 12/29/23 15:14 Anion Gap 16.0 (5-19) 12/29/23 15:14 BUN 12 mg/dL (6-20) 12/29/23 15:14 Creatinine 0.7 mg/dL (0.5-0.9) 12/29/23 15:14 GFR Calculation 102.8 mL/min (90-130) 12/29/23 15:14 Glucose 86 mg/dL (65-115) 12/29/23 15:14 Calculated Osmolality 277 mOsm/kg (285-295) L 12/29/23 15:14 Calcium 9.2 mg/dL (8.5-10.5) 12/29/23 15:14 Total Bilirubin 0.3 mg/dL (0.15-1.2) 12/29/23 15:14 AST 18 U/L (0-32) 12/29/23 15:14 ALT 14 U/L (0-33) 12/29/23 15:14 Alkaline Phosphatase 60 U/L (35-105) 12/29/23 15:14 Total Protein 7.3 g/dL (6.6-8.7) 12/29/23 15:14 Albumin 4.2 g/dL (3.5-5.2) 12/29/23 15:14 Globulin 3.1 g/dL (1.3-4.6) 12/29/23 15:14 Ser , Semi-Qnt 11852.00 mIU/mL 12/29/23 15:14 Urine Color Yellow (Yellow) 12/29/23 14:46 Urine Appearance Slightly cloudy (CLEAR) 12/29/23 14:46 Urine pH 6 (5-7) 12/29/23 14:46 Ur Specific [place] 1.010 (1.005-1.030) 12/29/23 14:46 Urine Protein Neg (Negative) 12/29/23 14:46 Urine Glucose (UA) Norm (Normal) 12/29/23 14:46 Urine Ketones Negative (Negative) 12/29/23 14:46 Urine Blood Neg (Negative) 12/29/23 14:46 Urine Nitrate Negative (Negative) 12/29/23 14:46 Urine Bilirubin Neg (Negative) 12/29/23 14:46 Urine Urobilinogen Norm mg/dL (Negative) 12/29/23 14:46 Ur Leukocyte Esterase Negative (Negative) 12/29/23 14:46 Urine RBC 0-4 /hpf (0-2) H 12/29/23 14:46 Urine WBC None /hpf (0-5) 12/29/23 14:46 Ur Squamous Epith Cells 0-4 /hpf (0-5) H 12/29/23 14:46 Amorphous Sediment Not Reportable 12/29/23 14:46 Urine Bacteria None /hpf (NONE) 12/29/23 14:46 Urine Mucus None /hpf 12/29/23 14:46 No radiology studies performed this visit Discharge Plan Discharge Patient Disposition: Home Clinical Impression: Dehydration during Condition: Stable Prescriptions: No Action amoxicillin-pot clavulanate 875-125 mg tablet 1 tab PO BID 7 Days Qty: 14 0RF norethindrone (contraceptive) 0.35 mg tablet 0.35 mg PO escitalopram oxalate 5 mg tablet 5 mg PO DAILY ibuprofen 800 mg Tablet 800 mg PO TID Qty: 45 0RF Discharge Orders: Discharge ED (Routine); Ordered 12/29/23 Ordered By: Anselmo Real Discharge Diet: Usual diet Discharge Activity: Increase activity as tolerated Patient Instructions: Dehydration (ED) Activity Restrictions/Additional Instructions: Make sure to drink plenty of fluids. Stay well-hydrated. Avoid the heat of the day. 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 Return to ER for worsening symptoms such as blood in vomit or stool, severe abdominal pain, or fever greater than 100.4. Coding Level of Care Code ED Tool Clerk for Josh Phillip
[2023-12-29 15:30] VITALS: BP 118/67; PULSE 70; O2SAT 98
[2023-12-29 15:38] LABS: Add Urine Microscopic? YES; Bilirubin Urine Neg (Negative); Blood Urine Neg (Negative); Glucose Urine UA Norm (Normal); Ketones Urine Negative (Negative); Leukocyte Esterase Urine Negative (Negative); Nitrate Urine Negative (Negative); Protein Urine Neg (Negative); Urine Appearance Slightly Cloudy (CLEAR); Urine Color Yellow (Yellow); Urobilinogen Urine Norm (Negative); pH Urine 6 (5-7)
[2023-12-29 15:41] LABS: Add Urine Culture? No; RBC Urine 0-4 /hpf (0-2); Squamous Epithelial Cell Urine 0-4 /hpf (0-5)
[2023-12-29 15:58] LABS: Alanine Aminotransferase 14 U/L (0-33); Albumin Level 4.2 g/dL (3.5-5.2); Alkaline Phosphatase 60 U/L (35-105); Aspartate Amino Transferase 18 U/L (0-32); Blood Urea Nitrogen 12 mg/dL (6-20); Calcium 9.2 mg/dL (8.5-10.5); Carbon Dioxide 20 mmol/L (22-29); Chloride 102 mmol/L (98-107); Creatinine Clr Calc Pharmacy 120.0752; Globulin 3.1 g/dL (1.3-4.6); Glomerular Filtration Rate 102.8 mL/min (90-130); Glucose 86 mg/dL (65-115); Osmolality Calculated 277 mOsm/kg (285-295); Sodium 134 mmol/L (136-145); Total Bilirubin 0.3 mg/dL (0.15-1.2); Total Protein 7.3 g/dL (6.6-8.7)
[2023-12-29] MEDS: sodium chloride 0.9% 1,000 ML 999 ML IV (16:10)
[2023-12-29 16:30] VITALS: BP 103/76; PULSE 70; O2SAT 98
[2023-12-29 17:17] VITALS: BP 106/82
== END 2023-12-29 17:18 | disposition home or self-care (01) ==
PROVIDERS: Emergency Provider Nurse Practitioner Family
DX: O26.891 Other specified pregnancy related conditions, first trimester (principal); E86.0 Dehydration; Z3A.01 Less than 8 weeks gestation of pregnancy; O99.331 Smoking (tobacco) complicating pregnancy, first trimester; F17.200 Nicotine dependence, unspecified, uncomplicated
CPT/HCPCS: 36415; 80053; 81001; 84702; 85025; 96360; 99284; J7030

== ENCOUNTER → 2024-01-27 13:42 | Outpatient (BNVA) | payer MEDICAID, SELFPAY | PROVIDERS: Visit Provider Emergency Medicine | DX: R50.9 Fever, unspecified (principal) | CPT/HCPCS: 87426 ==

== ENCOUNTER 2024-01-29 13:06 | Emergency (ER) | payer MEDICAID, SELFPAY ==
[2024-01-29 13:11] VITALS: BP 111/77; PULSE 77; RESP 16; TEMP 36.8; O2SAT 97; BMI 28.8
--- NOTE | 2024-01-29 13:14 | ECG_ITS ---
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 Measurements Intervals [place] Rate: 67 P: 45 TX: 151 QRS: 10 QRSD: 94 T: -4 QT: 383 QTc: 406 Interpretive Statements SINUS RHYTHM WITH MARKED SINUS ARRHYTHMIA LOW QRS VOLTAGE IN PRECORDIAL LEADS [QRS DEFLECTION < 1.0 mV IN CHEST LEADS] NONSPECIFIC T-WAVE ABNORMALITY No previous ECG available for comparison Electronically Signed On 01-29-2024 20:06:44 CDT by Holland Barragan M.D. [email or web address]
[2024-01-29 13:48] LABS: Basophils # 0.1 10^3/uL (0.0-0.1); Basophils % 0.8 %; Eosinophils # 0.6 10^3/uL (0.0-0.8); Eosinophils % 8.5 %; Hematocrit 39.6 % (36-47); Lymphocytes # 2.7 10^3/uL (0.8-4.8); Lymphocytes % 36.4 %; Mean Corpuscular HGB Conc 33.1 g/dL (30-55); Mean Corpuscular Hemoglobin 29.7 pg (27-33); Mean Corpuscular Volume 89.8 fl (85-98); Monocytes # 0.5 10^3/uL (0.2-0.9); Monocytes % 7.1 %; Neutrophils # 3.53 10^3/uL (1.8-7.7); Neutrophils % 46.9 %; Nucleated Red Blood Cells % 0 %; Platelet Count 289 10^3/cmm (157-399); Red Blood Count 4.41 10^6/uL (3.85-5.65); Red Cell Distribution Width 12.8 % (12.1-15.1); White Blood Count 7.51 10^3/uL (3.29-11.43)
[2024-01-29 14:00] VITALS: O2SAT 94
[2024-01-29 14:12] LABS: Alanine Aminotransferase 8 U/L (0-33); Albumin Level 3.8 g/dL (3.5-5.2); Alkaline Phosphatase 57 U/L (35-105); Anion Gap 17.3 (5-19); Aspartate Amino Transferase 17 U/L (0-32); Blood Urea Nitrogen 8 mg/dL (6-20); Calcium 8.6 mg/dL (8.5-10.5); Carbon Dioxide 18 mmol/L (22-29); Chloride 105 mmol/L (98-107); Creatinine Clr Calc Pharmacy 138.0592; Globulin 3.2 g/dL (1.3-4.6); Glomerular Filtration Rate 121.8 mL/min (90-130); Glucose 121 mg/dL (65-115); Osmolality Calculated 284 mOsm/kg (285-295); Potassium 3.3 mmol/L (3.5-5.1); Sodium 137 mmol/L (136-145); Total Bilirubin 0.2 mg/dL (0.15-1.2)
[2024-01-29] MEDS: lactated ringers 1,000 ML 999 ML IV (14:12)
[2024-01-29 14:14] LABS: HCG, Serum Qual Positive (Negative)
--- NOTE | 2024-01-29 14:40 | ED_ITS ---
HPI - COVID 2 General: Chief Complaint: COVID symptoms Stated Complaint: Covid +, dizzy Time Seen by Provider: 01/29/24 13:32 History of Present Illness: 24-year-old female comes in today with l ightheadedness. Patient reports that she is 11 weeks and tested positive for COVID on Tuesday. Patient had had 1 day of illness prior to testing. Patient is right now on day 3-4 of the COVID illness. Patient appears mildly unwell but not toxic. Patient appears in no pain. Respirations are even. COVID Results: 2 SARS-CoV-2 Antigen (Rapid) Positive (Negative) H 01/27/24 13:4 2 Related Data Allergies Allergy/AdvReac Type Severity Reaction Status Date / Time No Known Allergies Allergy Verified 01/29/24 13:10 Review of Systems 2 General: Reports: 10 or more systems reviewed and unremarkable except in HPI and below PFSH ED 2 PFSH: Medical History No pertinent family history Surgical History No pertinent past surgical history Social History Smoking and tobacco/nicotine status: unknown if used tobacco/nicotine Alcohol intake: never Substance/Drug Use: never Physical Exam 2 Const: COMMON NORMALS: alert HENMT: COMMON NORMALS: normocephalic HEAD & SCALP: normocephalic Neck/C-Spine: COMMON NORMALS: full ROM Resp: COMMON NORMALS: normal respiratory effort and clear to auscultation bilaterally AUSCULTATION: clear to auscultation bilaterally Cardio: COMMON NORMALS: regular rate and regular rhythm RATE: regular rate RHYTHM: regular rhythm GI: COMMON NORMALS: Soft to palpation and non-tender PALPATION: Yes Soft to palpation Back/Pelvis: COMMON NORMALS: thoracic and lumbar spine normal to inspection Extremity: COMMON NORMALS: no pedal edema Neuro: SENSORIUM/ORIENTATION: Yes alert Skin: COMMON NORMALS: turgor normal GENERAL SKIN EXAM: turgor normal Course 2 Vital Signs: Vital signs: Vital Signs Temperature 98.3 F 01/29/24 13:11 Pulse Rate 77 01/29/24 13:11 Respiratory Rate 16 01/29/24 13:11 Blood Pressure 111/77 01/29/24 13:11 Pulse Oximetry 97 01/29/24 13:11 [facility] - COVID Medical Decision Making Patient comes in today with weakness. Patient is approximate 11 weeks and tested positive for COVID on Tuesday. Patient reports nausea but no vomiting. Patient reports some fever and chills. Patient reports feeling some better today but whenever she stands up she is very lightheaded. Differential diagnosis includes but not limited to dehydration, pneumonia, viral syndrome. CBC is normal. CMP notes some mild decrease in potassium at 3.3 and a carbon dioxide of 18. Patient did test positive for . Patient was given 1 L of lactated Ringer's. Afterwards patient was able to stand without dizziness and felt much improved. Patient be discharged home with instructions for dehydration and viral syndrome. Patient reports understanding of care plan need for follow-up or return to the ER for worsening symptoms. Lab Data 01/29/24 13:40 01/29/24 13:40 Laboratory Results WBC 7.51 10^3/uL (3.29-11.43) 01/29/24 13:40 RBC 4.41 10^6/uL (3.85-5.65) 01/29/24 13:40 Hgb 13.10 g/dL (11.27-16.99) 01/29/24 13:40 Hct 39.6 % (36-47) 01/29/24 13:40 MCV 89.8 fl (85-98) 01/29/24 13:40 MCH 29.7 pg (27-33) 01/29/24 13:40 MCHC 33.1 g/dL (30-55) 01/29/24 13:40 RDW 12.8 % (12.1-15.1) 01/29/24 13:40 Plt Count 289 10^3/cmm (157-399) 01/29/24 13:40 MPV 10.0 fL (7.4-10.4) 01/29/24 13:40 Neut % (Auto) 46.9 % 01/29/24 13:40 Lymph % (Auto) 36.4 % 01/29/24 13:40 [place] % (Auto) 7.1 % 01/29/24 13:40 Eos % (Auto) 8.5 % 01/29/24 13:40 Baso % (Auto) 0.8 % 01/29/24 13:40 Neut # (Auto) 3.53 10^3/uL (1.8-7.7) 01/29/24 13:40 Lymph # (Auto) 2.7 10^3/uL (0.8-4.8) 01/29/24 13:40 [place] # (Auto) 0.5 10^3/uL (0.2-0.9) 01/29/24 13:40 Eos # (Auto) 0.6 10^3/uL (0.0-0.8) 01/29/24 13:40 Baso # (Auto) 0.1 10^3/uL (0.0-0.1) 01/29/24 13:40 Nucleated RBC % (auto) 0 % 01/29/24 13:40 Nucleated RBCs # 0.0 /100WBC 01/29/24 13:40 Sodium 137 mmol/L (136-145) 01/29/24 13:40 Potassium 3.3 mmol/L (3.5-5.1) L 01/29/24 13:40 Chloride 105 mmol/L (98-107) 01/29/24 13:40 Carbon Dioxide 18 mmol/L (22-29) L 01/29/24 13:40 Anion Gap 17.3 (5-19) 01/29/24 13:40 BUN 8 mg/dL (6-20) 01/29/24 13:40 Creatinine 0.6 mg/dL (0.5-0.9) 01/29/24 13:40 GFR Calculation 121.8 mL/min (90-130) 01/29/24 13:40 Glucose 121 mg/dL (65-115) H 01/29/24 13:40 Calculated Osmolality 284 mOsm/kg (285-295) L 01/29/24 13:40 Calcium 8.6 mg/dL (8.5-10.5) 01/29/24 13:40 Total Bilirubin 0.2 mg/dL (0.15-1.2) 01/29/24 13:40 AST 17 U/L (0-32) 01/29/24 13:40 ALT 8 U/L (0-33) 01/29/24 13:40 Alkaline Phosphatase 57 U/L (35-105) 01/29/24 13:40 Total Protein 7.0 g/dL (6.6-8.7) 01/29/24 13:40 Albumin 3.8 g/dL (3.5-5.2) 01/29/24 13:40 Globulin 3.2 g/dL (1.3-4.6) 01/29/24 13:40 HCG, Qual Positive (Negative) H 01/29/24 13:40 2 SARS-CoV-2 Antigen (Rapid) Positive (Negative) H 01/27/24 13:4 2 No radiology studies performed this visit EKG Data EKG 1: I personally reviewed and interpreted this EKG as follows: EKG interpretation date: 01/29/24 EKG interpretation time: 15:02 Prior EKG tracings: not available for review Interpretation: EKG shows a sinus rhythm with a mildly irregular rate of [address] elevation or ectopy is noted. No prior exam was available for comparison. Computer generated interpretation: Sinus rhythm with marked sinus arrhythmia, low QRS voltage in precordial leads, nonspecific T wave abnormality, borderline EKG, unconfirmed report. Discharge Plan Discharge Patient Disposition: Home Clinical Impression: Dehydration, COVID Condition: Stable Discharge Orders: Discharge ED (Routine); Ordered 01/29/24 Ordered By: Anselmo Real Discharge Diet: Advance as tolerated Discharge Activity: Increase activity as tolerated Patient Instructions: Viral Syndrome (ED) Activity Restrictions/Additional Instructions: Make sure to drink plenty of water and fluids. Stay well-hydrated. Follow-up with primary care for further instructions. Return to ED for new concerns or worsening symptoms such as severe shortness of breath, severe chest pain, or persistent vomiting. Coding Level of Care Code ED Kitchen Steward for Josh Phillip
== END 2024-01-29 16:45 | disposition home or self-care (01) ==
PROVIDERS: Emergency Medicine; Emergency Provider Nurse Practitioner Family
DX: U07.1 COVID-19 (principal); E86.0 Dehydration; I49.8 Other specified cardiac arrhythmias
CPT/HCPCS: 36415; 80053; 84703; 85025; 93005; 96360; 99284; J7120

== ENCOUNTER 2024-01-30 21:03 | Emergency (ER) | payer MEDICAID, SELFPAY ==
[2024-01-30 21:04] VITALS: BP 124/82; PULSE 91; RESP 18; TEMP 36.9; O2SAT 100; BMI 28.3
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
[2024-01-30 21:18] LABS: Charge for UA Resulting for Rev
[2024-01-30 21:35] LABS: Bilirubin Urine Neg (Negative); Blood Urine Neg (Negative); Glucose Urine UA Norm (Normal); Ketones Urine Negative (Negative); Leukocyte Esterase Urine 2+ (Negative); Nitrate Urine Negative (Negative); Protein Urine Neg (Negative); RBC Urine 0-4 /hpf (0-2); Urine Appearance Slightly Cloudy (CLEAR); Urine Color Yellow (Yellow); Urobilinogen Urine Neg (Negative); pH Urine 7 (5-7)
[2024-01-30 21:36] LABS: Add Urine Culture? No; Bacteria Urine 1+ /hpf; Mucus Urine 1+ /hpf
[2024-01-30 21:39] VITALS: BP 124/82; RESP 16; O2SAT 98
[2024-01-30] MEDS: acetaminophen 500 mg Tablet 1000 MG PO (22:47)
[2024-01-30 22:48] VITALS: BP 118/72; PULSE 77; RESP 16; O2SAT 99
[2024-01-30 23:29] VITALS: BP 118/72; PULSE 77; RESP 16; TEMP 36.9; O2SAT 99
== END 2024-01-30 23:30 | disposition home or self-care (01) ==
PROVIDERS: Emergency Provider Emergency Medicine; PCP Family Medicine
DX: O26.891 Other specified pregnancy related conditions, first trimester (principal); Z3A.11 11 weeks gestation of pregnancy; M79.18 Myalgia, other site; V89.2XXA Person injured in unspecified motor-vehicle accident, traffic, initial encounter
CPT/HCPCS: 76815; 81003; 81015; 99284

== ENCOUNTER 2024-05-02 23:41 | Outpatient (CLI) | payer MEDICAID, SELFPAY ==
[2024-05-02 23:41] VITALS: BMI 28.1
[2024-05-03] VITALS: BP 107/64; PULSE 93
[2024-05-03 00:14] VITALS: BP 104/64; PULSE 91
[2024-05-03 00:29] VITALS: BP 102/67; PULSE 82
[2024-05-03 00:38] VITALS: BP 102/67; PULSE 82; RESP 16; O2SAT 98
== END 2024-05-03 00:38 | disposition home or self-care (01) ==
LOC: OPOB 23:45 → OBGYN 23:47
PROVIDERS: PCP Family Medicine; Visit Provider Family Medicine
DX: O36.8190 Decreased fetal movements, unspecified trimester, not applicable or unspecified (principal); Z3A.00 Weeks of gestation of pregnancy not specified
CPT/HCPCS: 99211

== ENCOUNTER 2024-06-30 17:21 | Outpatient (CLI) | payer MEDICAID, SELFPAY ==
[2024-06-30 17:37] VITALS: BP 110/73; PULSE 82
[2024-06-30 17:39] VITALS: RESP 16; TEMP 36.4; BMI 27.8
[2024-06-30 17:52] VITALS: BP 105/64; PULSE 103
[2024-06-30 18:01] VITALS: BP 105/64; PULSE 103; RESP 17; TEMP 36.4
== END 2024-06-30 18:03 | disposition home or self-care (01) ==
LOC: OPOB 17:25 → OBGYN 17:26
PROVIDERS: PCP Family Medicine; Visit Provider Family Medicine
DX: O26.899 Other specified pregnancy related conditions, unspecified trimester (principal); Z3A.00 Weeks of gestation of pregnancy not specified; R42 Dizziness and giddiness
CPT/HCPCS: 59025; 99211

== ENCOUNTER 2024-07-23 23:04 | Outpatient (CLI) | payer MEDICAID, SELFPAY ==
[2024-07-23 23:05] VITALS: BMI 27.3
[2024-07-23 23:16] VITALS: BP 113/74; PULSE 102
[2024-07-23 23:39] VITALS: BP 113/58; PULSE 106
[2024-07-23 23:58] VITALS: BP 109/69; PULSE 89; PULSE 90; O2SAT 98
[2024-07-24] VITALS: BP 109/69; PULSE 89; RESP 16; TEMP 36.7; O2SAT 97
== END 2024-07-24 00:05 | disposition home or self-care (01) ==
LOC: OPOB 23:05 → OBGYN 23:07
PROVIDERS: PCP Family Medicine; Visit Provider Family Medicine
DX: O26.899 Other specified pregnancy related conditions, unspecified trimester (principal); Z3A.00 Weeks of gestation of pregnancy not specified; R10.9 Unspecified abdominal pain
CPT/HCPCS: 59025; 99211

== ENCOUNTER 2024-08-04 20:03 | Emergency (ER) | payer SELFPAY ==
[2024-08-04 20:08] VITALS: BP 125/76; PULSE 101; RESP 18; TEMP 36.7; O2SAT 97; BMI 27.6
--- NOTE | 2024-08-04 20:20 | W.ED.DENTAL ---
HPI - Dental/Oral General: Chief complaint: Dental/Oral Stated complaint: Pain in tooth 37 Weeks Time Seen by Provider: 08/04/24 20:16 History of Present Illness: 24-year-old female who is 38 weeks who presents emergency room with dental pain. She is started on antibiotics earlier today and is following with a dentist. However she is maxed out on her Tylenol and was hoping to have some temporary treatment while the antibiotics took effect. Related Data Previous Rx's ?Medication ?Instructions ?Recorded amoxicillin 500 mg tablet 500 mg PO TID #15 tabs 08/04/24 Allergies Allergy/AdvReac Type Severity Reaction Status Date / Time No Known Allergies Allergy Verified 08/04/24 20:11 Review of Systems Narrative: Constitutional symptoms: Negative except as documented in HPI. Skin symptoms: Negative except as documented in HPI. Eye symptoms: Negative except as documented in HPI. ENMT symptoms: Negative except as documented in HPI. Respiratory symptoms: Negative except as documented in HPI. Cardiovascular symptoms: Negative except as documented in HPI. Gastrointestinal symptoms: Negative except as documented in HPI. Genitourinary symptoms: Negative except as documented in HPI. Musculoskeletal symptoms: Negative except as documented in HPI. Neurologic symptoms: Negative except as documented in HPI. Psychiatric symptoms: Negative except as documented in HPI. Endocrine symptoms: Negative except as documented in HPI. [facility] ED PFSH: Medical History No pertinent family history Surgical History No pertinent past surgical history Social History Smoking and tobacco/nicotine status: never used tobacco/nicotine Alcohol intake: never Substance/Drug Use: never Physical Exam Narrative: EXAM NARRATIVE: General: Alert, no acute distress. Skin: warm and dry Head: Normocephalic Neck: Trachea midline Eye: Extraocular movements are intact. Ears, nose, mouth and throat: Oral mucosa moist, left second most posterior molar appears avulsed and infected. Respiratory: Respirations are non-labored Musculoskeletal: Normal ROM Neurological: Alert and oriented, No focal neurological deficit observed. Psychiatric: Cooperative, appropriate mood & affect. Course Vital Signs: Vital signs: Vital Signs Temperature 98.1 F 02/22/25 20:08 Pulse Rate 101 H 08/04/24 20:08 Respiratory Rate 18 08/04/24 20:08 Blood Pressure 125/76 08/04/24 20:08 Pulse Oximetry 97 08/04/24 20:08 Oxygen Delivery Me thod Room Air 08/04/24 20:08 MDM - Dental/Oral Medical Decision Making Assessment and plan: Dental abscess Dental avulsion - Discharged home - Discussed plan with patient. Answered any questions. - Evaluation and treatment of this problem were appropriate in the emergency setting. No radiology studies performed this visit Discharge Plan Discharge Patient Disposition: Home Clinical Impression: Dental abscess, Condition: Stable Prescriptions: No Action amoxicillin 500 mg tablet 500 mg PO TID Qty: 15 0RF Discharge Orders: Discharge ED (Routine); Ordered 08/04/24 Ordered By: Virgie Crowley Referrals: Naeem Barragan MD [Primary Care Provider] - Discharge Diet: Advance as tolerated Discharge Activity: Increase activity as tolerated Patient Instructions: Dental Abscess (ED), Opioid Safety, Pain Management Activity Restrictions/Additional Instructions: Thank you for choosing [facility] for your healthcare needs today. Please realize this is an emergency room and that we are providing you with a medical screening exam and this may not be complete and all inclusive of all the testing and or work up that you may need to determine your ailment or severity of your illness. You have been screened and evaluated and felt safe for discharge. Health conditions do change or evolve sometimes and as such it is important that you follow up with your Primary Doctor to be re checked, 3-5 days is a general good time frame for follow up. You are always welcome to return to the ED for re assessment if your symptoms are worsening or you have new concerns Print Language: Italian Coding Level of Care Code ED Occupational Health Physician for Josh Phillip
[2024-08-04] MEDS: HYDROcodone-acetaminophen 10-325 mg Tablet 2 TAB PO (20:25)
[2024-08-04 20:27] VITALS: BP 125/86; PULSE 99; RESP 18; O2SAT 97
== END 2024-08-04 20:23 | disposition home or self-care (01) ==
PROVIDERS: Emergency Provider Emergency Medicine; PCP Family Medicine
DX: K04.7 Periapical abscess without sinus (principal); Z3A.38 38 weeks gestation of pregnancy
CPT/HCPCS: 99283

== ENCOUNTER 2024-08-12 15:15 | Inpatient (IN) | payer SELFPAY ==
[2024-08-12] VITALS (33 sets, daily range): BP systolic 94–145; BP diastolic 54–90; PULSE 66–105; RESP 18; TEMP 36.7–37.5; O2SAT 96–100; BMI 27.3
[2024-08-12 14:56] LABS: Nitrazine Paper, PH Positive
[2024-08-12 15:30] LABS: Basophils # 0.1 10^3/uL (0.0-0.1); Basophils % 0.4 %; Eosinophils # 0.3 10^3/uL (0.0-0.8); Eosinophils % 2.2 %; Hematocrit 32.2 % (36-47); Lymphocytes # 2.9 10^3/uL (0.8-4.8); Lymphocytes % 23.2 %; Mean Corpuscular HGB Conc 32.9 g/dL (30-55); Mean Corpuscular Hemoglobin 28.2 pg (27-33); Mean Corpuscular Volume 85.6 fl (85-98); Mean Platelet Volume 11.3 fL (7.4-10.4); Monocytes # 0.7 10^3/uL (0.2-0.9); Monocytes % 5.2 %; Neutrophils # 8.51 10^3/uL (1.8-7.7); Neutrophils % 68.3 %; Nucleated Red Blood Cells % 0 %; Platelet Count 237 10^3/cmm (157-399); Red Blood Count 3.76 10^6/uL (3.85-5.65); Red Cell Distribution Width 13.8 % (12.1-15.1); White Blood Count 12.48 10^3/uL (3.29-11.43)
--- NOTE | 2024-08-12 18:51 | PM.OPHPUD ---
Labor & Delivery H&P Update Date of Procedure: August 12, 2024 Date H&P Performed: 08/06/24 Changes to previous documentation: Spontaneous rupture membranes Admission Diagnosis: 24-year-old 4 para 2-0-1-2 at 39 weeks estimated gestational age Planned procedure: Vaginal delivery Other information: The patient is an otherwise healthy 39-week female infant with a relatively unremarkable . She arrived to the hospital after presumed rupture membranes at 1400. After arriving the hospital her rupture membranes were confirmed. Her blood type is O+. Her antibody screen was negative. Her glucose screen was negative. Her GBS status is negative. She is rubella immune. The remainder infectious disease profile is within normal limits. Related Problem List Diagnoses (1) 39 weeks gestation of : (2) Rupture of membranes with clear amniotic fluid: A&P Assessment and plan (1) 39 weeks gestation of : We will consider augmenting her labor depending on her contraction pattern and her cervical dilation. Status: Acute (2) Rupture of membranes with clear amniotic fluid: Status: Acute PDMP PDMP Reviewed: Not Reviewed
--- NOTE | 2024-08-12 18:59 | ANES.PREANE2 ---
Pre-Anesthetic Assessment Height/Weight: Height 1.6 m Weight 69.853 kg Pulse BP Pulse Ox O2 Del Method 80 121/75 97 Room Air 08/12/24 18:57 08/12/24 18:57 08/12/24 18:53 08/12/24 15:00 Preop Diagnosis: IUP Familial anesthetic complications: none Was Beta Yasmin taken within 24 hours: N/A Was Clonidine taken within 24 hours: N/A Last Intake: 14:30 Social No alcohol and No tobacco Exam alert and oriented x 3 Airway Submandibular: within normal limits Cervical ROM: within normal limits Mallampati: Class II Dentition: full (poor dentition) History/ROS No significant history except as noted Pulmonary None reported CV/HEM None reported None reported Hepatic None reported GI Gastroesophageal Reflux Disease ( only) Metabolic None reported Musc/skel None reported Neuropsych was told she has scoliosis, has never affected epidural placements Anesthetic Plan ASA status: 2 Anesthesia: Anesthesia Evaluation and Regional (specify below) Medications/Allergies Home Medications ?Medication ?Instructions ?Recorded ?Confirmed ?Last Taken ?Type amoxicillin 500 mg tablet 500 mg PO TID #15 tabs 08/04/24 08/04/24 Unknown Rx Allergies Allergy/AdvReac Type Severity Reaction Status Date / Time No Known Allergies Allergy Verified 08/04/24 20:11 [facility] Anesthesia Medical History No pertinent family history Surgical History No pertinent past surgical history Social History Smoking and tobacco/nicotine status: never used tobacco/nicotine Alcohol intake: never Substance/Drug Use: never Female Reproductive History : 4 Data Anesthesia 08/12/24 15:05 Short CBC 08/12/24 Range/Units 15:05 WBC 12.48 H (3.29-11.43) 10^3/uL Hgb 10.60 L (11.27-16.99) g/dL Hct 32.2 L (36-47) % MCV 85.6 (85-98) fl Plt Count 237 (157-399) 10^3/cmm Neut % (Auto) 68.3 % Neut # (Auto) 8.51 H (1.8-7.7) 10^3/uL Blood Bank 08/12/24 15:05 Blood Type O Positive Rho(D) Type Rh positive Antibody Screen Negative Cardiac Studies: No Data to Display
[2024-08-12] MEDS: sodium chloride 0.9% 1,000 ML 125 ML IV (19:00)
[2024-08-12] MEDS: ROPivacaine syringe 100 MG/50 ML SYRINGE 10 MG EPIDURAL ×2 (19:00→22:48)
--- NOTE | 2024-08-12 19:00 | ANES.PROC ---
Anesthesia Procedures Procedure/Date: 08/12/24 Epidural: Time Out Performed: Yes Consents Signed: Procedure Consent Consent: from patient, risks and benefits reviewed and patient agrees to proceed Lumbar Level: L3-L4 Epidural position: sitting Epidural procedure: sterile prep of area, 1% lidocaine to numb the area, 18 g needle, negative for paresthesia passed, test dose given, 1.5% xylocaine 1:200k epi, placed PCEA, no systemic response, sterile dressing applied, L.U.D. no apparent complications and 0.2% Ropiavacaine @ mls/hr (10) Additional Comments: HAFSA at 4, heme return upon aspiration x2. third time threading catheter with negative heme/CSF with aspiration. tolerated well. taped at 10 at skin.
[2024-08-13] VITALS (20 sets, daily range): BP systolic 89–146; BP diastolic 53–104; PULSE 65–102; RESP 15–18; TEMP 36.6–36.8; O2SAT 95–99
[2024-08-13] MEDS: oxytocin 30 UNIT/500 ML BAG IV (00:36)
[2024-08-13] MEDS: dextrose 5%-lactated ringers 1,000 ML 125 ML IV (02:22)
[2024-08-13] MEDS: ROPivacaine syringe 100 MG/50 ML SYRINGE 10 MG EPIDURAL (02:22)
[2024-08-13] MEDS: oxytocin 30 UNIT/500 ML BAG 600 UNIT IV (04:04)
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
[2024-08-13] MEDS: HYDROcodone-acetaminophen 5-325 mg Tablet PO ×3 (06:39→21:07)
[2024-08-13] MEDS: ibuprofen 800 mg tablet PO ×3 (09:30→20:21)
[2024-08-13] MEDS: docusate sodium 100 mg Capsule PO ×2 (09:30→20:21)
[2024-08-13] MEDS: PRENATAL VIT NO.130/IRON/FOLIC 1 EACH TABLET PO (09:30)
[2024-08-13 16:23] LABS: Hematocrit 29.3 % (36-47); Mean Corpuscular HGB Conc 32.8 g/dL (30-55); Mean Corpuscular Hemoglobin 28.6 pg (27-33); Mean Corpuscular Volume 87.2 fl (85-98); Mean Platelet Volume 11.2 fL (7.4-10.4); Platelet Count 239 10^3/cmm (157-399); Red Blood Count 3.36 10^6/uL (3.85-5.65); Red Cell Distribution Width 13.9 % (12.1-15.1); White Blood Count 16.07 10^3/uL (3.29-11.43)
--- NOTE | 2024-08-13 17:20 | ANE.PACU2 ---
Inpatient post-anesthesia follow up: Airway intact: Yes Vital signs: Temperature 98 F Pulse Rate 67 Respiratory Rate 15 Blood Pressure 118/77 Pulse Oximetry 98 Oxygen Delivery Me thod Nasal Cannula Oxygen Flow Rate Fraction of Inspir ed Oxygen Hydration adequate: Yes Nausea and vomiting: No Pain level: 1 Mental status: Baseline Epidural Start/End: Epidural Start Date: 08/12/24 Epidural Start Time: 18:27 Epidural End Date: 08/13/24 Epidural End Time: 06:13
[2024-08-14 03:55] VITALS: BP 102/65; PULSE 65; RESP 16; TEMP 36.4; O2SAT 95
--- NOTE | 2024-08-14 07:58 | P.DS_ITS ---
Discharge Providers CERTIFIED PEDORTHOTIST Date of Admission: 08/12/24 15:15 Date of Discharge: 08/14/24 Attending Provider at Admission: Naeem Barragan MD Attending Provider at Discharge: Naeem Barragan MD Primary Care Provider: Naeem Barragan MD Diagnoses at Discharge Discharge Diagnosis (1) Spontaneous vaginal delivery: Status: Acute (2) 39 weeks gestation of : Status: Acute Reason for Visit Reason for Visit: POSSIBLE RUPTURE OF MEMBRANES Hospital Course Hospital Course The patient presented to the hospital with spontaneous rupture membranes. An epidural was placed. She then progressed to complete without difficulty. She had a precipitous, but otherwise unremarkable delivery. Her course was also unremarkable. Her bleeding was within normal limits. Her pain was well-controlled. There were no concerns Information Peripartum Data: Delivery Method: Vaginal Physical Exam Narrative: The patient is alert. She appears comfortable. Her heart has a regular rate and rhythm with no murmurs appreciated. Lungs are clear to auscultation bilaterally. Her fundus is firm and below the umbilicus. Urinary Catheter Management: Conde: Cath Placed During This Visit: yes, but has since been removed by the nurse Reason for Continuing Indwelling Catheter: Decision to DC Catheter Urinary Catheter Date of Insertion: 08/12/24 Urinary Catheter Time of Insertion: 19:40 Date Urinary Catheter Removed: 08/13/24 Time Urinary Catheter Discontinued: 03:30 Discharge Data Studies Completed and Pending Laboratory Results WBC 16.07 10^3/uL (3.29-11.43) H 08/13/24 15:55 RBC 3.36 10^6/uL (3.85-5.65) L 08/13/24 15:55 Hgb 9.60 g/dL (11.27-16.99) L 08/13/24 15:55 Hct 29.3 % (36-47) L 08/13/24 15:55 MCV 87.2 fl (85-98) 08/13/24 15:55 MCH 28.6 pg (27-33) 08/13/24 15:55 MCHC 32.8 g/dL (30-55) 08/13/24 15:55 RDW 13.9 % (12.1-15.1) 08/13/24 15:55 Plt Count 239 10^3/cmm (157-399) 08/13/24 15:55 MPV 11.2 fL (7.4-10.4) H 08/13/24 15:55 Neut % (Auto) 68.3 % 08/12/24 15:05 Lymph % (Auto) 23.2 % 08/12/24 15:05 [place] % (Auto) 5.2 % 08/12/24 15:05 Eos % (Auto) 2.2 % 08/12/24 15:05 Baso % (Auto) 0.4 % 08/12/24 15:05 Neut # (Auto) 8.51 10^3/uL (1.8-7.7) H 08/12/24 15:05 Lymph # (Auto) 2.9 10^3/uL (0.8-4.8) 08/12/24 15:05 [place] # (Auto) 0.7 10^3/uL (0.2-0.9) 08/12/24 15:05 Eos # (Auto) 0.3 10^3/uL (0.0-0.8) 08/12/24 15:05 Baso # (Auto) 0.1 10^3/uL (0.0-0.1) 08/12/24 15:05 Nucleated RBC % (auto) 0 % 08/12/24 15:05 Nucleated RBCs # 0.0 /100WBC 08/12/24 15:05 Fluid pH (paper) Positive H 08/12/24 14:54 Blood Type O Positive 08/12/24 15:05 Rho(D) Type Rh positive 08/12/24 15:05 Antibody Screen Negative 08/12/24 15:05 Vitals Last Vital Signs Temp 97.6 F 08/14/24 03:55 Pulse 65 08/14/24 03:55 Resp 16 08/14/24 03:55 BP 102/65 08/14/24 03:55 Pulse Ox 95 08/14/24 03:55 O2 Del Method Room Air 08/14/24 03:55 Results Labs OB ([facility]): Obstetrics US 01/30/24 Blood Type O Positive 08/12/24 Antibody Screen Negative 08/12/24 Hct 29.3 % (36-47) L 08/13/24 Hgb 9.60 g/dL (11.27-16.99) L 08/13/24 Rho(D) Type Rh positive 08/12/24 Plt Count 239 10^3/cmm (157-399) 08/13/24 Ser , Semi-Qnt 86033.00 mIU/mL 12/29/23 HCG, Qual Positive (Negative) H 01/29/24 Discharge Plan Discharge Patient Disposition: Home Condition: Stable Prescriptions: New ibuprofen 800 mg Tablet 800 mg PO TID Qty: 45 0RF Vitamin 27 mg iron- 800 mcg Tablet 1 tab PO DAILY Qty: 90 0RF Discharge Orders: Discharge Order (Routine); Ordered 08/14/24 Ordered By: Naeem Barragan Referrals: Naeem Barragan MD [Primary Care Provider] - 6 Weeks Discharge Diet: Usual diet Discharge Activity: Limit activity as instructed Patient Instructions: Opioid Safety Discharge Attestations CERTIFIED PEDORTHOTIST Time Spent in Discharge Care*: less than 30 min Coding Level of Care Code Acute Code for Chg Fwd Diagnoses Spontaneous vaginal delivery O80 39 weeks gestation of Z3A.39
[2024-08-14] MEDS: docusate sodium 100 mg Capsule PO (08:40)
[2024-08-14] MEDS: ibuprofen 800 mg tablet PO (08:40)
[2024-08-14] MEDS: flu vacc pf 24-25 (6 mos+) SYRINGE 45 MCG IM (08:40)
[2024-08-14] MEDS: PRENATAL VIT NO.130/IRON/FOLIC 1 EACH TABLET PO (08:40)
[2024-08-14 09:35] VITALS: BP 119/85; PULSE 78; RESP 16; TEMP 36.4; O2SAT 97
[2024-08-14 10:12] VITALS: BP 119/85; PULSE 78; RESP 16; TEMP 36.4; O2SAT 97
== END 2024-08-14 10:12 | disposition home or self-care (01) | DRG 807 ==
LOC: OPOB 15:15 → OBGYN 15:15
PROVIDERS: Absent Provider Family Medicine; Admitting Provider Family Medicine; PCP Family Medicine; Visit Provider Family Medicine
DX: O62.3 Precipitate labor (principal); Z37.0 Single live birth; Z3A.39 39 weeks gestation of pregnancy
CPT/HCPCS: 36415; 51702; 59025; 59409; 83986; 85025; 85027; 86850; 86900; 90471; 90686; 99211; J2590; J2795; J7030; J7121

== ENCOUNTER 2024-12-03 00:47 | Emergency (ER) | payer SELFPAY ==
[2024-12-03 00:52] VITALS: BP 129/84; PULSE 101; RESP 18; TEMP 36.7; O2SAT 94; BMI 24.7
--- NOTE | 2024-12-03 01:19 | XRR_ITS ---
PROCEDURE INFORMATION: Exam: XR Chest Exam date and time: 12/03/2024 3:35 AM Age: 24 years old Clinical indication: Cough and shortness of breath; C/O cough with SOB TECHNIQUE: Imaging protocol: Radiologic exam of the chest. Views: 1 view. COMPARISON: CR XR chest 1V portable [id number] 01/18/2023 3:49 PM FINDINGS: Lungs: Unremarkable. No consolidation. Pleural spaces: Unremarkable. No pleural effusion. No pneumothorax. Heart/Mediastinum: Unremarkable. No cardiomegaly. Bones/joints: Unremarkable. XR/XR chest 1V portable [id number] IMPRESSION: No acute findings.
[2024-12-03 02:12] LABS: Influenza A NEGATIVE (Negative); Influenza B NEGATIVE (Negative); Respiratory Syncytial Virus Ce NEGATIVE (Negative); SARS-CoV-2 PCR NEGATIVE (Negative)
--- NOTE | 2024-12-03 03:28 | W.ED.URI ---
HPI - URI/Sore Throat General: Chief Complaint: Upper Respiratory Infection Stated Complaint: Flue Like Symptoms Time Seen by Provider: 12/03/24 03:24 History of Present Illness: 24-year-old female with a 3-day history of sore throat, body aches, chills, cough that is productive. Cough has been worse today with some shortness of breath. No vomiting. Related Data Previous Rx's ?Medication ?Instructions ?Recorded escitalopram oxalate 10 mg tablet 10 mg PO DAILY #30 tabs 08/14/24 ibuprofen 800 mg tablet 800 mg PO TID #45 tabs 08/14/24 vits no.130-ferrous fum 1 tab PO DAILY #90 tabs 08/14/24 27 mg iron-folic acid 800 mcg tablet ( Vitamin) albuterol sulfate 90 mcg/actuation 2 inh inhalation Q4H PRN shortness 12/03/24 aerosol inhaler of breath or wheezing #6.7 grams azithromycin 250 mg tablet See Rx Instructions PO .COMPLEX #6 12/03/24 tabs Allergies Allergy/AdvReac Type Severity Reaction Status Date / Time No Known Allergies Allergy Verified 12/03/24 00:55 [facility] ED PFSH: Medical History No pertinent family history Surgical History No pertinent past surgical history Social History Smoking and tobacco/nicotine status: never used tobacco/nicotine Alcohol intake: never Substance/Drug Use: never Physical Exam Const: GENERAL APPEARANCE: cooperative and anxious; not ill appearing and not frail appearing HENMT: COMMON NORMALS: normocephalic, atraumatic and Normal external nose present HEAD & SCALP: normocephalic and atraumatic FACE & SINUS: normal facial exam and face symmetric NOSE: Normal external nose present Eye: COMMON NORMALS: Equal, round and reactive pupils present and EOMs intact bilaterally PUPIL: Yes Equal, round and reactive pupils present Neck/C-Spine: GENERAL: Yes trachea midline Chest: CHEST: Yes Symmetrical chest wall rise Resp: COMMON NORMALS: clear to auscultation bilaterally EFFORT & INSPECTION: Yes tachypneic AUSCULTATION: clear to auscultation bilaterally Cardio: COMMON NORMALS: regular rate and regular rhythm RATE: regular rate RHYTHM: regular rhythm GI: COMMON NORMALS: Normal to inspection, nondistended, normoactive bowel sounds present Extremity: COMMON NORMALS: no pedal edema Neuro: SUN COMA SCALE: document GCS findings Jackson coma scale eye opening: Spontaneous Jackson coma scale verbal response: Orientated Jackson coma scale motor response: Obey commands Sun coma scale total score: 15 SENSORY EXAM: Yes extremities (intact) Psych: COMMON NORMALS: speech normal SPEECH: Yes normal speech Skin: COMMON NORMALS: no rashes or lesions noted GENERAL SKIN EXAM: no rashes or lesions noted Course Vital Signs: Vital signs: Vital Signs Temperature 99.4 F 12/03/24 03:31 Pulse Rate 104 H 12/03/24 04:24 Respiratory Rate 19 H 12/03/24 04:24 Blood Pressure 113/63 12/03/24 04:24 Pulse Oximetry 97 12/03/24 04:24 Oxygen Delivery Me thod Room Air 12/03/24 04:24 MDM - URI/Sore Throat Medical Decision Making She is afebrile here. Lungs are clear vitals otherwise stable. Chest x-ray is clear. She is receiving prednisone and a DuoNeb treatment. She will get azithromycin. Methylprednisolone taper. Scheduled albuterol for the first 24 hours then as needed following. Return for worsening symptoms despite treatment. Lab Data Laboratory Results Influenza A (PCR) Negative (Negative) 12/03/24 00:59 Influenza Type B (PCR) Negative (Negative) 12/03/24 00:59 RSV (PCR) Negative (Negative) 12/03/24 00:59 SARS-CoV-2 (PCR) Negative (Negative) 12/03/24 00:59 XR interpretation done by ED provider, pending radiology final review Discharge Plan Discharge Patient Disposition: Home Clinical Impression: Acute bronchitis with wheezing Condition: Stable Prescriptions: New azithromycin 250 mg tablet See Rx Instructions .ROUTE .COMPLEX Qty: 6 0RF Rx Instructions: For 250 mg dose pack: take 500 mg today (day 1), then 250 mg for 4 days (days 2-5) albuterol sulfate 90 mcg/actuation HFA aerosol inhaler 2 inh inhalation Q4H PRN (Reason: shortness of breath or wheezing) Qty: 6.7 1RF No Action ibuprofen 800 mg Tablet 800 mg PO TID Qty: 45 0RF Vitamin 27 mg iron- 800 mcg Tablet 1 tab PO DAILY Qty: 90 0RF escitalopram oxalate 10 mg tablet 10 mg PO DAILY Qty: 30 3RF Discharge Orders: Discharge ED (Routine); Ordered 12/03/24 Ordered By: Avinash Kelly Referrals: Naeem Barragan MD [Primary Care Provider, [facility]] - 1-3 days Patient Instructions: Acute Bronchitis (ED), Opioid Safety, Pain Management Activity Restrictions/Additional Instructions: Use the inhaler every 4 hours while awake for the first 24 hours whether you feel you needed or not. Then you may use it as needed. Other medications as directed. Stay hydrated. Return for problems. Call your doctor later this morning for follow-up appointment. Print Language: [place]an Coding Level of Care Code ED Legal Support Manager for Josh Phillip
[2024-12-03 03:31] VITALS: BP 122/80; PULSE 107; TEMP 37.4; O2SAT 97
[2024-12-03] MEDS: ipratropium-albuterol 3 mL Neb INHALATION (03:48)
[2024-12-03 03:49] VITALS: PULSE 105; RESP 24; O2SAT 96
[2024-12-03] MEDS: azithromycin 250 mg Tablet 500 MG PO (04:22)
[2024-12-03] MEDS: predniSONE 20 mg Tablet 60 MG PO (04:22)
[2024-12-03 04:24] VITALS: BP 113/63; PULSE 104; RESP 19; O2SAT 97
== END 2024-12-03 04:45 | disposition home or self-care (01) ==
PROVIDERS: Emergency Provider Emergency Medicine; PCP Family Medicine
DX: J20.9 Acute bronchitis, unspecified (principal); R06.2 Wheezing; Z11.52 Encounter for screening for COVID-19
CPT/HCPCS: 71045; 87637; 94640; 96374; 99284; J7512; J9999; Q0144